=== PATIENT | female | born 1965 | race Caucasian/White ===

== ENCOUNTER 2025-04-20 18:48 | Emergency (ER) | payer MEDICAID ==
[~2025-04-20] VITALS: Ht 162.6 cm; Wt 55.7 kg
[~2025-04-20 18:48] MED LIST: PHEN-786 PO
[2025-04-20 19:05] VITALS: BP 114/70; PULSE 102; RESP 16; O2SAT 98
--- NOTE | 2025-04-20 19:47 | RADIOLOGY REPORT ---
CLINICAL INDICATION: HAND PAIN LEFT TECHNIQUE: 3 radiographic views of the left hand were obtained. Comparison: DI FOOT, COMPLETE (3VW MIN) on DOS: 04/12/25 FINDINGS/IMPRESSION: There is oblique mildly displaced fracture through the base of the 5th digit proximal phalanx with as sociated soft tissue edema. No dislocation. Mild flexion at the proximal interphalangeal joint of the 5th digit.
--- NOTE | 2025-04-20 20:33 | Physician Documentation ---
History of Present Illness ~ Chief Complaint: Mechanical Fall Stated Complaint: FINGER PAIN Time Seen by MD: 19:14 Primary Medical Doctor: None HPI Patient is seen today with complaints of pain of the base of her left small finger. Patient states he tripped and fell two days ago and has had pain in the hand ever since. She has no other concern or complaint at this time. She d enies any head strike or loss of consciousness or headaches pain. She has no other concern or complaint at this time. Tetanus within 5 Years?: Yes Medication Reconciliation Allergies: Coded Allergies: codeine (Unverified Allergy, Unknown, 04/20/25) erythromycin base (Verified Allergy, Unknown, 04/20/25) Scheduled Phenazopyridine Hcl (Pyridium tablet), 1 TAB PO Q8H Past Medical History Past Medical History: UTI, Arthritis Past Surgical History: cholecystectomy Alcohol Use: None Drug Use: none Lives In: Home Review of Systems Constitutional: Denies: chills, fever, weakness Eyes: Denies: pain, blurred vision ENT: Denies: ear pain, nose pain, throat pain, mouth pain Respiratory: Denies: cough, shortness of breath Cardiovascular: Denies: chest pain, palpitations Gastrointestinal: Denies: abdominal pain, nausea, vomiting Genitourinary: Denies: burning, dysuria Female Genitalia: Denies: vaginal discharge, pelvic pain Neurological: Denies: headache, dizziness Musculoskeletal: Denies: pain, swelling Integumentary: Denies: rash, lesions Allergic/Immunologic: Denies: hives, itching Hematologic/Lymphatic: Denies: no symptoms reported Psychiatric: Denies: depression, anxiety Physical Exam Vital Signs: Temperature: 97.1, Source: Temporal, Heart Rate: 102, Respiratory Rate: 16, BP: 114/70, Pulse Oximetry: 98, Weight: 55.700 Oxygen Flow Rate: 0 Physical Exam General: Awake and Alert, no acute distress. HEENT: Patient on exam does have nits in her hair as well as visible lice adult lice on exam. Conjunctiva pink, Sclera clear, Mucus Membranes moist. Neck: Supple without masses and tenderness. Resp: Unlabored. Lungs clear to auscultation bilaterally. Heart: Regular Rate and rhythm, normal S1 and S2 without murmur, rub or gallop. Musculoskeletal: Patient on exam does have bruising and ecchymosis of the left small finger. Patient is neurovascularly intact distally. Motor function is intact. Range of motion is decreased because of pain of the left small finger. Extremities: No cyanosis,clubbing or edema. Skin: Warm and Dry. Progress Results/Orders Results/Orders Orders - KAMALJIT JACK Ortho Orders (04/20/25 20:44) Completed Orders - KAMALJIT JACK Ibuprofen Tablet (Motrin Tablet) (04/20/25 20:43) Medications Received in ER Medications (Trade) Dose Ordered Sig/Luma Route PRN Reason Start Time Stop Time Status Last Admin Dose Admin (Motrin tablet) 800 mg ONCE STAT PO 04/20/25 20:43 04/20/25 21:00 DC 04/20/25 21:08 800 MG Vital Signs 04/20/25 19:05 Temp 97.1 Pulse 102 Resp 16 B/P (MAP) 114/70 Pulse Ox 98 O2 Flow Rate 0 EKG/XRAY/CT/US/VASC/MRI Bone/Soft Tissue X-Ray (Ext.) : Additional Comment X-ray of left hand interpreted by myself today does show mildly displaced oblique fracture of the base of the left 5th proximal phalanx. Bones are otherwise in anatomic alignment. No osteolytic or blastic lesions. DIAGNOSTIC RADIOLOGY Patient: MAYRA NEGRON Medical Record: [id number] [facility] : 1965, Age: 59 Sex: Female Location: ER Patient Status: REG ER Service Date/Time: 04/20/251912 Ordering Physician: ORLANDO SANCHEZ MD Exam: HAND, COMPLETE (3VW MIN) CLINICAL INDICATION: HAND PAIN LEFT TECHNIQUE: 3 radiographic views of the left hand were obtained. Comparison: DI FOOT, COMPLETE (3VW MIN) on DOS: 04/12/25 FINDINGS/IMPRESSION: There is oblique mildly displaced fracture through the base of the 5th digit proximal phalanx with associated soft tissue edema. No dislocation. Mild flexion at the proximal interphalangeal joint of the 5th digit. Electronically Signed by:YARELY HORNE DO Date & Time: 04/20/251943 Dictated by: YARELY HORNE DO Dictation date and time: 04/20/251943 Primary Care Provider: NO PRIMARY CARE PROVIDER cc: ORLANDO SANCHEZ MD ~ Medical Decision Making Findings Patient is seen today with complaints of pain of the base of her left small finger. Patient states he tripped and fell two days ago and has had pain in the hand ever since. She has no other concern or complaint at this time. She denies any head strike or loss of consciousness or headaches pain. She has no other concern or complaint at this time. Patient was placed in a ulnar gutter splint of the left hand and patient will follow up with primary care for referral to Orthopedics with [facility] as soon as possible for further eval and treatment and placement of a cast. Patient voiced understanding. Patient will return to ED with any worsening, concerning or changing symptoms. Prescription of permethrin shampoo was sent to patient pharmacy for treatment of lice infestation. Departure Disposition: HOME / SELF CARE / HOMELESS Impression: Primary Impression: Phalanx, proximal fracture of finger Qualified Codes: S62.617A - Displaced fracture of proximal phalanx of left little finger, initial encounter for closed fracture Condition: Stable Discharge Instructions: Finger Fracture, Adult, [id number] Additional Instructions: Patient was placed in a ulnar gutter splint of the left hand and patient will follow up with primary care for referral to Orthopedics with [facility] as soon as possible for further eval and treatment and placement of a cast. Patient voiced understanding. Patient will return to ED with any worsening, concerning or changing symptoms. Prescription of Ovide shampoo was sent to patient pharmacy for treatment of lice infestation. Referrals: NO PRIMARY CARE PROVIDER (PCP) Prescriptions Malathion (Ovide) 0.5 % Lotion 1 APPLIC TOP UD for 1 Day, #59 ML 0 Refills apply to dry hair and rub gently until the scalp is thoroughly moistened and let dry naturally; shampoo after 8-12 hours Prov: KAMALJIT JACK 04/20/25 Signature Scribe Signature: No scribe Attestation: No scribe KAMALJIT JACK PAC Apr 20, 2025 20:33
[2025-04-20] MEDS: ibuprofen tablet 400 MG TABLET PO STA (21:08)
[2025-04-20] MEDS ORDERED: MALA59LO4 TOP (21:57)
[2025-04-20 22:13] VITALS: TEMP 97.1
--- NOTE | 2025-04-21 08:06 | ELECTROCARDIOGRAPH REPORT ---
[facility] Test Date: 2025-04-20 Test Time: 19:15:24 Pat Name: MAYRA NEGRON Department: EMERGENCY ROOM Room: Gender: F [employer] Tender: : 1965 Requested By: ORLANDO SANCHEZ Order Number: [id number] Reading MD: Dr. Orlando Sanchez Measurements Intervals [place] Rate: 96 P: 85 ID: [id number] QRS: 111 QRSD: 90 T: -27 QT: 328 QTc: 415 Interpretive Statements Sinus rhythm Right atrial enlargement Right axis deviation Borderline repolarization abnormality Electronically Signed On 04-21-2025 18:19:[address] Orlando Sanchez Please click the below link to view image of tracing.
== END 2025-04-20 22:13 | disposition home or self-care (01) ==
LOC: ER 18:49
DX: S62.617A Displaced fracture of proximal phalanx of left little finger, initial encounter for closed fracture (principal); M19.90 Unspecified osteoarthritis, unspecified site; Z90.49 Acquired absence of other specified parts of digestive tract; Z88.5 Allergy status to narcotic agent; Z88.1 Allergy status to other antibiotic agents; Z79.899 Other long term (current) drug therapy; W01.0XXA Fall on same level from slipping, tripping and stumbling without subsequent striking against object, initial encounter; Y93.89 Activity, other specified; Y92.89 Other specified places as the place of occurrence of the external cause; Y99.8 Other external cause status
CPT/HCPCS: 29125; 73130; 93005; 99283; A6449

== ENCOUNTER 2025-05-03 07:34 | Emergency (ER) | payer MEDICAID ==
[~2025-05-03] VITALS: Ht 162.6 cm; Wt 55.2 kg
[~2025-05-03 07:34] MED LIST changes: +MALA59LO4 TOP
[2025-05-03 07:37] VITALS: BP 99/76; PULSE 80; RESP 18; O2SAT 99
--- NOTE | 2025-05-03 08:12 | RADIOLOGY REPORT ---
CLINICAL INDICATION: HAND PAIN TECHNIQUE: 3 radiographic views of the left hand were obtained. Comparison: DI HAND, COMPLETE (3VW MIN) on DOS: 04/20/25 FINDINGS/IMPRESSION: Fracture again visualized 5th proximal phalanx with flexion deformity.
--- NOTE | 2025-05-03 10:35 | Physician Documentation ---
History of Present Illness ~ Chief Complaint: Finger pain Stated Complaint: FINGER PAIN Time Seen by MD: 09:59 Primary Medical Doctor: None HPI Patient is a 59-year-old female that presents to the emergency department for re-evaluation of a fractured 5th digit to her left hand that was sustained a couple of weeks ago. Patient's finger was realigned and casted here the original time of injury. Was referred to Orthopedic Clinic she has not followed up yet. She states that she needs directions and the phone number. No additional injury at this time. Tetanus within 5 years: Yes Medication Reconciliation Allergies: Coded Allergies: codeine (Unverified Allergy, Unknown, 05/03/25) erythromycin base (Verified Allergy, Unknown, 05/03/25) Scheduled Malathion (Ovide), 1 APPLIC TOP UD Phenazopyridine Hcl (Pyridium tablet), 1 TAB PO Q8H Past Medical History Past Medical History: UTI, Arthritis Past Surgical History: cholecystectomy Alcohol Use: None Drug Use: none Lives In: Home Review of Systems ROS As stated above in the HPI, otherwise all systems are reviewed and negative. Physical Exam Vital Signs: Temperature: 98.7, Source: Oral, Heart Rate: 80, Respiratory Rate: 18, BP: 99/76, Pulse Oximetry: 99, Weight: 55.250 Oxygen Flow Rate: 0 Physical Exam VITALS: Reviewed and as above. GENERAL: Alert, no apparent distress. MUSCULOSKELETAL Casted right fifth digit, good pulses SKIN: Warm and dry, no rash NEURO: Oriented x4, No motor or sensory deficit PSYCH: Normal mood and affect, no agitation Progress Results/Orders Results/Orders Vital Signs 05/03/25 07:37 Temp 98.7 Pulse 80 Resp 18 B/P (MAP) 99/76 Pulse Ox 99 O2 Flow Rate 0 Medical Decision Making Findings The Pt was found to have a closed left digit fracture on XR. The Pt is otherwise well appearing, hemodynamically stable, and shows no evidence of neurovascular injury or compartment syndrome. follow up with ortho_ PMD for ortho referal_. Here for re-evaluation and information for an Orthopedic referral. Departure Disposition: HOME / SELF CARE / HOMELESS Impression: Primary Impression: Fracture of metacarpal bone Additional Impression: Finger pain Additional Impression Text Previous fracture sustained go weeks ago already casted here for orthopedic clinic information. Additional Instructions: Nursing for re-evaluation of a right-sided 5th digit fracture sustained and previous to today's visit. Already have a cast in place and were provided with an orthopedic referral. We will provide you with the office number and the directions to the orthopedic office today please follow up with him and follow up with her primary care provider. Return to the emergency department if you have any worsening of your current symptoms or any additional concerning symptoms that we discussed here today. Please follow-up with the orthopedic clinic. Phone number [phone]. Referrals: NO PRIMARY CARE PROVIDER (PCP) Education Educated: Patient Educated regarding: treatment, need for follow up VLADIMIR SO GOLF CADDIE May 03, 2025 10:35
[2025-05-03 10:44] VITALS: TEMP 98.7
== END 2025-05-03 10:46 | disposition home or self-care (01) ==
LOC: ER 07:34
DX: S62.611A Displaced fracture of proximal phalanx of left index finger, initial encounter for closed fracture (principal); M19.90 Unspecified osteoarthritis, unspecified site; Z88.1 Allergy status to other antibiotic agents; Z88.5 Allergy status to narcotic agent; Z90.49 Acquired absence of other specified parts of digestive tract; X58.XXXA Exposure to other specified factors, initial encounter; Y93.89 Activity, other specified; Y92.89 Other specified places as the place of occurrence of the external cause; Y99.8 Other external cause status
CPT/HCPCS: 73130; 99283

== ENCOUNTER 2025-05-31 08:49 | Inpatient (IN) | payer MEDICAID ==
[~2025-05-31] VITALS: Ht 160 cm; Wt 61.7 kg
[2025-05-31 09:07] LABS: MEAN PLATELET VOLUME 7.9 FL (7.4-10.4); RED CELL DISTRIBUTION WIDTH 14.2 % (11.5-14.5)
[2025-05-31 09:17] LABS: TOTAL CARBON DIOXIDE 28.8 MMOL/L (24-32)
--- NOTE | 2025-05-31 09:17 | Physician Documentation ---
History of Present Illness General Chief Complaint: Abdominal Pain Stated Complaint: ABD PAIN Time Seen by MD: 09:13 OK to notify your PCP?: No Primary Medical Doctor: None Source: patient, RN notes reviewed Mode of Arrival: EMS Exam Limitations: no limitations History of Present Illness Initial Comments 60 year old female, with a history of hypothyroidism, brought to the ED via EMS with complaints of diffuse lower abdominal pain, worse on the right, beginning this morning after eating cereal. Pain is rated 8/10 at this time in his constant. She also reports some vomiting yesterday, diarrhea for the last three days, but constipation today. She denies any fever. She denies history of abdominal surgeries. Medication Reconciliation Allergies: Coded Allergies: codeine (Unverified Allergy, Unknown, 05/03/25) erythromycin base (Verified Allergy, Unknown, 05/03/25) Scheduled Aripiprazole (Aripiprazole), 1 TAB PO QAM, (Reported) Divalproex Sodium (Divalproex Sodium), 1 TAB PO HS, (Reported) Levothyroxine Sodium (Levothyroxine Sodium), 1 TAB PO DAILY, (Reported) Pantoprazole Sodium (Pantoprazole Sodium), 1 TAB PO BID, (Reported) Prazosin Hcl (Prazosin Hcl), 2 CAP PO HS, (Reported) Trazodone HCl (Trazodone HCl), 1 TAB PO HS, (Reported) Discontinued Medications Aripiprazole (Abilify), 1 TAB PO DAILY, (Reported) Discontinued Reason: Other Divalproex Sodium (Depakote), 1 TAB PO HS, (Reported) Discontinued Reason: Other Levothyroxine Sodium (Levothyroxine), 1 CAP PO DAILY, (Reported) Discontinued Reason: Other Malathion (Ovide), 1 APPLIC TOP UD Discontinued Reason: patient no longer taking Phenazopyridine Hcl (Pyridium tablet), 1 TAB PO Q8H Discontinued Reason: patient no longer taking Past Medical History Past Medical History: UTI, Arthritis Past Surgical History: cholecystectomy Alcohol Use: None Drug Use: none Lives In: Home Review of Systems All Other Systems at this time: Reviewed and Negative ROS Lower abdominal pain as well as other positive symptoms noted in the HPI. Otherwise all other systems are reviewed and negative. Physical Exam Physical Exam Vital Signs: RN Vital Signs have been reviewed: Yes, Temperature: 97.9, Source: Oral, Heart Rate: 82, Respiratory Rate: 16, BP: 103/64, Pulse Oximetry: 99, Weight: 73.000 Pulse Oximetry Reflects: adequate oxygenation Physical Exam VITALS: Reviewed and as above. GENERAL: Alert, mild distress. HEENT: Normocephalic, atraumatic, PERRL, EOMI, dry mucosa RESPIRATORY: Lungs clear, normal breath sounds, no respiratory distress. CHEST: No accessory muscle use, no retractions CV: Regular rate, rhythm, no edema, no murmur, No: JVD GI: Diffuse lower abdominal tenderness, no peritoneal signs. Soft, bowels sounds present, no rebound, guarding, or rigidity MUSCULOSKELETAL No deformities, no edema SKIN: Warm and dry, no rash NEURO: Oriented x4, No motor or sensory deficit PSYCH: Normal mood and affect, no agitation Progress Progress Note 1145: Reevaluation: Patient continues to complain of right lower abdominal pain despite treatment. 1149: Hospitalist paged. 1215: Case discussed with Dr. Aggarwal, hospitalist, who agrees to evaluate the patient for admission. Results/Orders Reviewed/noted all lab results: Yes Results/Orders Orders - OHLLIV SMITH MD Ct Abdomen Pelvis (05/31/25 10:00) Page Hospitalist (05/31/25 11:52) Fill Out Med Reconciliation (05/31/25 11:52) Completed Orders - LIV MUÑOZ MD Hcg, Ur Ql (05/31/25 08:56) Cbc/Diff (05/31/25 08:56) BMP (05/31/25 08:56) Lipase (05/31/25 08:56) CMP (05/31/25 08:56) Procalcitonin (05/31/25 09:15) Acetaminophen 1,000mg/100ml Iv (Ofirmev (05/31/25 09:35) Normal Saline 1000ml (0.9% Sodium Chlori (05/31/25 09:35) Glycopyrrolate Inj (Robinul Inj) (05/31/25 09:35) Ct Abdomen Pelvis (05/31/25 10:00) Iohexol 300mg/Ml 100ml Inj. (Omnipaque-3 (05/31/25 10:04) Ketorolac Trometh 15mg/Ml Vial (Toradol (05/31/25 11:50) Ondansetron Inj. (Zofran 4mg/2ml Vial) (05/31/25 11:50) Piperacillin/Tazo 3.375gm/50ml (Zosyn 3. (05/31/25 11:50) Morphine 4mg/Ml Inj. (Morphine Inj.) (05/31/25 11:50) Ua W/Microscopic, Cult If Ind (06/01/25 02:30) Laboratory Tests Test 05/31/25 09:00 05/31/25 09:24 White Blood Count 4.1 L Red Blood Count 4.13 L Hemoglobin 13.0 Hematocrit 38.8 Mean Corpuscular Volume 93.9 Mean Corpuscular Hemoglobin 31.5 H Mean Corpuscular Hemoglobin Concent 33.6 Red Cell Distribution Width 14.2 Platelet Count 209 Mean Platelet Volume 7.9 Neutrophils (%) (Auto) 81.9 H Lymphocytes (%) (Auto) 14.8 L Monocytes (%) (Auto) 2.2 Eosinophils (%) (Auto) 0.8 Basophils (%) (Auto) 0.3 Neutrophils # (Auto) 3.4 Lymphocytes # (Auto) 0.6 L Monocytes # (Auto) 0.1 Eosinophils # (Auto) 0.0 Basophils # (Auto) 0.0 CBC Comment Sodium Level 141 Potassium Level 3.4 L Chloride Level 106 Carbon Dioxide Level 28.8 Anion Gap 6 L Blood Urea Nitrogen 2 L Creatinine 0.70 Estimated GFR/1.73 m2 86 BUN/Creatinine Ratio 2.9 L Glucose Level 141 H Calcium Level 8.8 Total Bilirubin 0.3 Aspartate Amino Transf (AST/SGOT) 15 Alanine Aminotransferase (ALT/SGPT) 17 Alkaline Phosphatase 87 Total Protein 6.7 Albumin 3.5 Globulin 3.2 Albumin/Globulin Ratio 1.1 Lipase 14 L Chemistry Comments Procalcitonin < 0.05 EKG/XRAY/CT/US/VASC/MRI CT : Interpreted By: radiologist CT: abdomen/pelvis With Contrast?: Yes Impression EXAM: CT CT ABDOMEN PELVIS W/ IV CONTRAST HISTORY: 60-year-old female with diffuse abdominal pain, greater on the right, beginning after eating cereal, vomiting, constipation and diarrhea. COMPARISON: None TECHNIQUE: Helical CT images of the abdomen and pelvis were performed with 100 mL omnipaque 300 IV contrast. Sagittal and coronal reformatted images were obtained. This CT exam was performed using 1 or more of the following dose reduction techniques: Automated exposure control, adjustment of the mA and/or kv according to patient size, or the use of iterative reconstruction techniques. Radiation Dose Information: CT Dose: CTDI volume is 9.9 mGy. Dose-length product is 453.96 mGy*cm FINDINGS: CT abdomen: There is a 2.5 mm left lower lobe noncalcified pulmonary nodule (image 11, series 2). The heart is not enlarged. There is a small area of focal fatty density in the left lobe of the liver adjacent to the falciform ligament. Gallbladder is surgically absent. There is prominence of the intra and extrahepatic biliary ducts. The spleen, pancreas, kidneys, and adrenal glands are unremarkable. No abdominal aortic aneurysm or dissection. There is wall thickening of the gastric antrum, with question of an ulceration of the anterior wall of the gastric antrum (image 46, series 2).. There is a small sliding hiatal hernia. CT pelvis: No abnormal small bowel dilatation or free air. There is low to moderate volume free fluid in the pelvis. There is fecal retention in the colon. There is wall thickening of the ascending colon with adjacent fat stranding (images 48-61, series 2), with adjacent fat stranding. The appendix is not dilated. There are small fatty bilateral inguinal hernias, slightly larger on the right. The urinary bladder wall is diffusely mildly thickened, although the urinary bladder is not fully distended. There is chronic appearing mild superior endplate compression fracture of T12. There is moderate lower lumbar degenerative disc disease and facet arthropathy. IMPRESSION: 1. Gastric antrum wall thickening suggestive of gastritis. Additionally, there may be a gastric antral ulceration. Recommend gastroenterology consultation for possible upper endoscopy or other appropriate management. 2. Wall thickening of the ascending colon with adjacent fat stranding suggestive of colitis. 3. Postoperative changes of cholecystectomy. 4. Fecal retention in the colon suggestive of constipation. 5. Urinary bladder wall thickening may be due to cystitis versus artifactual appearance due to incomplete luminal distention. 6. Low to moderate volume free fluid in the pelvis may be physiologic and/or pathologic. 7. Chronic appearing mild superior endplate compression fracture of T12. 8. No evidence of bowel obstruction, acute appendicitis, or other acute process in the abdomen or pelvis. Reviewed by myself. Medical Decision Making Additional info obtained from: old records (last seen in april for metacarpal fracture) Findings The patient presents with lower abdominal pain. Patient has some tenderness in the lower abdomen there was no peritoneal signs the patient is hemodynamically stable. CT imaging of the abdomen was reviewed by myself I have reviewed the radiologist's interpretation demonstrates some ascending colitis in the right lower quadrant. The patient was given an old pain medication fluids and antiemetics in the emergency department with some improvement. She does continued to have pain, she is requesting admission at this time. The case has been discussed with the hospitalist. The patient will be admitted to the hospitalist. Prior hospitalizations have been reviewed. Pulse oximetry was interpreted as normal and adequate. Departure Time of Disposition: 11:49 Disposition: ADMITTED INPATIENT Admitted to Inpatient Unit: yes, to hospitalist Impression: Primary Impression: Colitis Additional Impression: Abdominal pain Qualified Codes: R10.9 - Unspecified abdominal pain Condition: Fair Referrals: NO PRIMARY CARE PROVIDER (PCP) Signature Scribe Signature: Scribed for Liv Muñoz MD by Jono Olmos . 05/31/25 09:45 Attestation: The note accurately reflects work and decisions made by me.Liv Muñoz MD 06/06 12:25 LIV MUÑOZ MD May 31, 2025 09:17 JONO CARNEY May 31, 2025 09:33
[2025-05-31 09:35] LABS: CREATININE 0.70 MG/DL (0.40-0.90); eCRCL 75 ML/MIN; eGFR 86 ML/MIN
[2025-05-31] MEDS: glycopyrrolate 0.2mg/ml inj IV ONE (09:48)
[2025-05-31] MEDS: normal saline 1000ML IV soln IVB ONE (09:49)
[2025-05-31] MEDS: acetaminophen 1,000mg/100ml IV 100 ML IV ONE (09:49)
[2025-05-31] MEDS ORDERED: iohexol 300mg/ml 100ml inj. ONE (10:04)
--- NOTE | 2025-05-31 10:51 | RADIOLOGY REPORT ---
EXAM: CT CT ABDOMEN PELVIS W/ IV CONTRAST HISTORY: 60-year-old female with diffuse abdominal pain, greater on the right, beginning after eating cereal, vomiting, constipation and diarrhea. COMPARISON: None TECHNIQUE: Helical CT images of the abdomen and pelvis were performed with 100 mL omnipaque 300 IV c ontrast. Sagittal and coronal reformatted images were obtained. This CT exam was performed using 1 or more of the following dose reduction techniques: Automated exposure control, adjustment of the mA an d/or kv according to patient size, or the use of iterative reconstruction techniques. Radiation Dose Information: CT Dose: CTDI volume is 9.9 mGy. Dose-length product is 453.96 mGy*cm FINDINGS: CT abdomen: There is a 2.5 mm left lower lobe noncalcified pulmonary nodule (image 11, series 2). The heart is not enlarged. There is a small area of focal fatty density in the left lobe of the liver ad jacent to the falciform ligament. Gallbladder is surgically absent. There is prominence of the intra and extrahepatic biliary ducts. The spleen, pancreas, kidneys, and adrenal glands are unremarkable. N o abdominal aortic aneurysm or dissection. There is wall thickening of the gastric antrum, with quest ion of an ulceration of the anterior wall of the gastric antrum (image 46, series 2).. There is a sma ll sliding hiatal hernia. CT pelvis: No abnormal small bowel dilatation or free air. There is low to moderate volume free fluid in the pelvis. There is fecal retention in the colon. There is wall thickening of the ascending colo n with adjacent fat stranding (images 48-61, series 2), with adjacent fat stranding. The appendix is not dilated. There are small fatty bilateral inguinal hernias, slightly larger on the right. The ur inary bladder wall is diffusely mildly thickened, although the urinary bladder is not fully distended . There is chronic appearing mild superior endplate compression fracture of T12. There is moderate lo wer lumbar degenerative disc disease and facet arthropathy. IMPRESSION: 1. Gastric antrum wall thickening suggestive of gastritis. Additionally, there may be a gastric antr al ulceration. Recommend gastroenterology consultation for possible upper endoscopy or other appropr iate management. 2. Wall thickening of the ascending colon with adjacent fat stranding suggestive of colitis. 3. Postoperative changes of cholecystectomy. 4. Fecal retention in the colon suggestive of constipation. 5. Urinary bladder wall thickening may be due to cystitis versus artifactual appearance due to incomp lete luminal distention. 6. Low to moderate volume free fluid in the pelvis may be physiologic and/or pathologic. 7. Chronic appearing mild superior endplate compression fracture of T12. 8. No evidence of bowel obstruction, acute appendicitis, or other acute process in the abdomen or pel vis.
[2025-05-31] MEDS: ondansetron/PF 4mg/2ml inj IV ONE (12:13)
[2025-05-31] MEDS: ketorolac trometh 15mg/ml vial 15 MG/ML ML IV ONE (12:13)
[2025-05-31] MEDS: piperacillin/tazo 3.375gm/50ml 50 ML IV ONE (12:14)
[2025-05-31] MEDS: morphine 4 MG/ML inj SYRINge IV ONE (12:14)
[2025-05-31] MEDS ORDERED: potassium Cl 40MEQ/1/2NS 520ml 520 ML IV PRN (12:30)
[2025-05-31] MEDS ORDERED: magnesium sulf-water 2g/50mL 50 ML IV PRN (12:30)
[2025-05-31] MEDS ORDERED: magnesium sulf-water 4G/100mL 100 ML IV PRN (12:30)
[2025-05-31] MEDS ORDERED: potassium Cl 20 mEq SR tablet PO PRN (12:30)
[2025-05-31] MEDS ORDERED: magnesium Cl slow-release 64mg tablet PO PRN (12:30)
--- NOTE | 2025-05-31 12:57 | HISTORY AND PHYSICAL ---
History & Physical Providers to CC ~ History of Present Illness Reason for Admit\Complaint: Abdominal pain History of Present Illness 60 years old female presented to the ER from the [place] for evaluation of abdominal pain that started this morning . Describes pain as constant , stabbing in nature , mostly in the lower abdomen. Patient states she had vomited yesterday. Denies having any hematemesis melena or bright red blood per rectum. Denies having any fever. States she had diarrhea for about three days but after that she has had no BM for last two days. Patient evaluated with a CT scan of the abdomen which showed gastric antrum wall thickening suggestive of gastritis a gastric antral ulceration and wall thickening of the ascending colon with adjacent fat stranding suggestive of colitis. Patient has been admitted for further treatment She denies having any chest pain palpitations orthopnea PND or ankle edema. Patient denies having any focal neurological symptoms. Denies having any urinary symptoms as well. Allergies: Coded Allergies: codeine (Unverified Allergy, Unknown, 05/03/25) erythromycin base (Verified Allergy, Unknown, 05/03/25) Home Medications Home Medications Active Ovide (Malathion) 0.5 % Lotion 1 Applic TOP UD 1 Days apply to dry hair and rub gently until the scalp is thoroughly moistened and let dry naturally; shampoo after 8-12 hours Pyridium tablet (Phenazopyridine HCl) 100 Mg Tablet 1 Tab PO Q8H Past Medical History Past Medical History Hypothyroidism, insomnia,Bipolar disorder Past Surgical History Surgical History Comment Cholecystectomy Family History Family History: Family history was reviewed; no changes noted. Past Social History [facility] , Smokes 3-4 cigarettes per day , does not drink or do any drugs Health Maintenance Health Maintenance She is current on her immunizations. ROS ROS All other systems are reviewed and are negative except as mentioned in HPI Exam Vitals: Vital Signs Date Time Temp Pulse Resp B/P (MAP) Pulse Ox O2 Delivery O2 Flow Rate FiO2 05/31/25 12:14 16 05/31/25 12:11 97.9 99 139/80 (99) 98 0 General: Awake alert cooperative in no acute distress. HEENT: Normocephalic, atraumatic, extraocular movements are intact, sclerae anicteric, conjunctiva pink, moist oral mucosa. Neck: Supple, no JVD, trachea midline, no lymphadenopathy. Chest: Clear to auscultation, no wheezes crackles or rhonchi. Cardiovascular: Regular rate rhythm, no murmur gallop or rub. Abdomen: Soft, tender on palpation, no organomegaly Extremities: No cyanosis clubbing or edema. Central Nervous System: Nonfocal. Moves all four extremities Musculoskeletal: No joint swelling or deformities Skin: No rash or ulcers Diagnostic Data Last Recorded Lab Results: 05/31/25 0905/31/25 09 Additional Plan 60 years old female presented to the ER for evaluation of abdominal pain. 1. Abdominal pain: CT scan findings noted for gastritis, antral ulcer, colitis. We will start her on IV Protonix, IV antibiotics. Consulted GI. We will keep patient NPO and start on IV fluids. 2. Probable bacterial colitis: We will treat her with empiric antibiotics. 3. Fecal impaction: Bowel care. 4. Hypothyroidism: Continue levothyroxine 5. Depression/bipolar disorder: Continue trazodone , Abilify and Depakote. 6. Hypokalemia Will replace per protocol 7. GI prophylaxis Protonix 8. DVT Prophylaxis: SCD 's and early ambulation. 9.Code status: Patient wishes to be a full code Date of Service: May 31, 2025 Billing Provider: KIMANI DONAHUE MD Common Visit Codes: [id number] INP/OBS CARE (HIGH) KIMANI DONAHUE MD May 31, 2025 12:57
[2025-05-31] MEDS ORDERED: LEVO25CA5 PO (13:00)
[2025-05-31] MEDS ORDERED: ARIP10TA9 PO (13:00)
[2025-05-31] MEDS ORDERED: TRAZ-251 PO (13:00)
[2025-05-31] MEDS ORDERED: DIVA500T2 PO (13:00)
[2025-05-31] MEDS: normal saline 1000ml 1,000 ML IV SCH (13:02)
[2025-05-31] MEDS: HYDROcodone/acetaminophen 10/325mg tab PO ONE (13:26)
[2025-05-31 14:00] VITALS: BP 137/74; PULSE 90; RESP 17; TEMP 98.1; O2SAT 98
[2025-05-31 14:08] VITALS: RESP 16; O2SAT 98
--- NOTE | 2025-05-31 14:57 | CONSULTATION REPORT - RESIDENT ---
Consult Providers to CC Resident Creating Document: JAYY BONDS RES History of Present Illness Reason for Admit\Complaint: possible gastric ulcer and colitis History of Present Illness A 60 years old female patient with PMH of hypothyroidism, UTI, arthritis, cholecystectomy presented to the ER with chief complaints of abdominal pain since 5 days. She endorses that she has continuous, stabbing type of pain, 8/10 severity in the lower abdomen aggravated with lying on the sides associated with nausea, 2 episodes of yellow-green vomiting. She stated that she had 3-4 bowel movements per day for 3 days and then she has no bowel movements since 2 days. She states that she did not pass gas or bowel movement since today morning. She denies any recent food intake outside or any sick contact. She denies abdominal distention, blood in vomiting or stool, shortness for breath, dizziness, syncope, chest pain, heartburn, dyspepsia, fevers. Allergies: Coded Allergies: codeine (Unverified Allergy, Unknown, 05/03/25) erythromycin base (Verified Allergy, Unknown, 05/03/25) Home Medications Home Medications Active Reported Levothyroxine (Levothyroxine Sodium) 25 Mcg Capsule 1 Cap PO DAILY 30 Days Abilify (Aripiprazole) 10 Mg Tablet 1 Tab PO DAILY 30 Days Trazodone HCl 50 Mg Tablet 1 Tab PO HS 30 Days Depakote (Divalproex Sodium) 500 Mg Tablet.dr 1 Tab PO HS 30 Days Past Medical History Past Medical History hypothyroidism UTI arthritis Past Surgical History Surgical History Comment cholecystectomy Past Social History Social History Comment Active smoker, smokes 3-4 cigarettes per day since 2 years She denies drinking alcohol Denies any recreational drug use Retired, she lives at [facility] Constitutional: No fever, chills, dizziness, weight gain or loss Eyes: No pain, erythema, discharge, blurring of vision ENT: No sore throat, epistaxis, tinnitus Cardiovascular:No chest pain, palpitations, syncope, lower extremity edema, paroxysmal nocturnal dyspnea Respiratory: No Shortness of breath and cough, No hemoptysis. Gastrointestinal:Reports Abdominal pain, vomiting,nausea,constipation,diarrhea. Normal appetite. No hematemesis or melena. Musculoskeletal: No swelling or edema of extremities. Integumentary: No change in skin, hair, nails. No swelling, bruising, abrasions Neurologic: No weakness,No headache, neck pain, numbness or tingling of the extremities, Psychiatric: No delusions, depression, loss of interest in normal activity or change in sleep pattern, hallucinations, suicidal ideations Endocrine: No fatigue, no weakness. polydipsia, polyuria, change in appetite, heat or cold intolerance, sweating, dry skin Hematological: No bleeding, petechiae, bruising Allergies: No asthma or urticaria Exam Vitals: Vital Signs Date Time Temp Pulse Resp B/P (MAP) Pulse Ox O2 Delivery O2 Flow Rate FiO2 05/31/25 14:08 16 98 Room Air 05/31/25 12:11 97.9 99 139/80 (99) 0 General: Awake , alert and oriented to time,place, person, in mild distress HEENT: Atraumatic, normocephalic, PEERLA, anicteric sclera ; pink conjunctiva, dry mucosal membranes Neck: Trachea midline. Supple, normal range of motion, no JVD Cardiac: S1, S2 heard,Regular rate and rhythm, no murmurs heard. Chest and Respiratory: Equal breath sounds bilaterally, no tachypnea, wheezing and ronchi .Chest wall is symmetric and without deformity. Abdomen: Soft, diffuse lower abdominal tenderness, No guarding or rigidity, Little's sign negative. Hypoactive bowel sounds, no hepatosplenomegaly MSK: Range of motion of all extremities are normal. There is no joint pain or joint swelling or joint erythema. There is no muscle pain or tenderness or swelling. Extremities: warm, well-perfused, No cyanosis, clubbing, 2+ pulses felt Neurological: Speech is clear, alert, and oriented x 4. No sensory or motor deficits. Cranial nerves II-XII intact. Skin: Warm and dry Psychiatry: Affect and mood are normal Diagnostic Data Last Recorded Lab Results: 05/31/25 0900 05/31/25 0900 Additional Plan Abdominal pain Possible 2/2 gastritis versus gastric ulcer Possible colitis Fecal impaction CT showed : -Gastric antrum wall thickening suggestive of gastritis. PUD is a possibility -Wall thickening of the ascending colon with adjacent fat stranding suggestive of colitis. -Fecal retention in the colon suggestive of constipation. H&H are stable Initial CBC, procalcitonin, lipase are normal Started on MiraLax 17 gms p.o. daily Started on IV protonix 40 mg b.i.d. daily IV Zofran 4 mg p.r.n. Pain management with morphine as needed Started on clear liquid diet, NPO after midnight Planned for EGD tomorrow, risks versus benefits are explained to the patient and patient agreed for the procedure Planned for colonoscopy on 06/02/2025 - continue management as per the primary hospitalist DVT prophylaxis: SCDs GI prophylaxis: IV Protonix 40 mg Diet: Clear liquid diet, NPO after midnight Disposition: Patient was admitted for evaluation of abdominal pain. Patient planned for EGD tomorrow. Melvina Bonds MD Internal Medicine Resident, PGY 1 Date of Service: May 31, 2025 Billing Provider: SHEA BUSTILLO MD, SUNIL KUMAR, RES May 31, 2025 14:57 SHEA BUSTILLO MD Jun 03, 2025 14:47
[2025-05-31] MEDS: metroNIDAZOLE-Flagyl 500mg/NS 100 ML IV SCH (15:42)
[2025-05-31] MEDS: potassium Cl 20 mEq SR tablet PO PRN (15:42)
[2025-05-31 18:00] VITALS: BP 139/113; PULSE 106; RESP 18; TEMP 98; O2SAT 95
[2025-05-31] MEDS: nicotine 7mg patch - 24hr TD SCH (18:25)
[2025-05-31 20:00] VITALS: RESP 16; O2SAT 93
[2025-05-31] MEDS: K and/or MAG REPLACEMENT MC SCH (20:00)
[2025-05-31] MEDS: divalproex sodium 500mg tablet.DR PO SCH (21:22)
[2025-05-31 22:00] VITALS: BP 96/50; PULSE 94; RESP 14; TEMP 97.8; O2SAT 96
[2025-06-01] VITALS (14 sets, daily range): BP systolic 89–123; BP diastolic 60–78; PULSE 74–124; RESP 13–28; TEMP 97.6–98.5; O2SAT 95–99
[2025-06-01 03:08] LABS: LEUKOCYTE ESTERASE ,URINE NEGATIVE (Neg); NITRITES, URINE NEGATIVE (Neg); OCCULT BLOOD,URINE NEGATIVE (Neg)
[2025-06-01 03:10] LABS: URINE HCG NEGATIVE (NEG)
[2025-06-01 03:13] LABS: UA COLLECTION TYPE CLN CATCH MIDSTREAM
[2025-06-01 03:14] LABS: HYALINE CASTS 0-3 /LPF (NEGATIVE); MUCUS STRANDS MODERATE /LPF (Neg); SQUAMOUS EPITHELIAL CELL,UR MANY /LPF (FEW)
[2025-06-01 04:32] LABS: MEAN PLATELET VOLUME 8.1 FL (7.4-10.4); RED CELL DISTRIBUTION WIDTH 14.2 % (11.5-14.5)
[2025-06-01 05:05] LABS: BANDS% (MANUAL) 32 % (0-10); CREATININE 0.68 MG/DL (0.40-0.90); NEUTROPHILS % (MANUAL) 46 % (42-75); TOTAL CARBON DIOXIDE 23.6 MMOL/L (24-32); eCRCL 77 ML/MIN; eGFR 89 ML/MIN
[2025-06-01 05:06] LABS: LYMPHOCYTES % (MANUAL) 14 % (21-51); METAMYLEOCYTES% (MANUAL) 4 % (0-0); MONOCYTES % (MANUAL) 4 % (2-12); PLATELET ESTIMATE NORMAL
[2025-06-01] MEDS: polyethylene glycol 3350 17gm powd pack PO SCH (08:00)
[2025-06-01] MEDS: levoTHYROXINE 25mcg tablet PO SCH (08:17)
[2025-06-01] MEDS: CefTRIAXone/D5W-Rocephin 1gm 50 ML IV SCH (08:20)
[2025-06-01] MEDS ORDERED: simethicone 40mg/0.6ml oral drops 15ml ONE (09:15)
[2025-06-01] MEDS ORDERED: LIDOcaine 2% Viscous 15ml cup ONE (09:15)
[2025-06-01] MEDS ORDERED: ringers solution, lactated 1000ml IV soln IV ONE (09:15)
[2025-06-01] MEDS ORDERED: propofol inj 20 ML IV ONE (09:17)
--- NOTE | 2025-06-01 10:28 | PROGRESS NOTE- Residence ---
Progress Note - Resident Providers to CC Resident Creating Document: JAYY BONDS RES ~ Antibiotic Timeout Antibiotic Ordered?: Yes Subjective patient was seen and examined at bedside. Patient complains of abdominal pain better than yesterday. Patient planned for EGD today. Objective Vital Signs Date Time Temp Pulse Resp B/P (MAP) Pulse Ox O2 Delivery O2 Flow Rate FiO2 06/01/25 10:20 101 13 117/72 (87) 99 Nasal Cannula 2.0 06/01/25 09:30 97.9 Result Diagram: 06/01/258 06/01/25407 Awake , alert and oriented to time,place, person, not in distress HEENT: Atraumatic, normocephalic, PEERLA, anicteric sclera ; pink conjunctiva, moist mucosal membranes Neck: Trachea midline. Supple, normal range of motion, no JVD Cardiac: S1, S2 heard,Regular rate and rhythm, no murmurs heard. Chest and Respiratory: Equal breath sounds bilaterally, no tachypnea, wheezing and ronchi .Chest wall is symmetric and without deformity. Abdomen: Soft, moderate lower abdominal tenderness, No guarding or rigidity, Little's sign negative. Hypoactive bowel sounds, no hepatosplenomegaly MSK: Range of motion of all extremities are normal. There is no joint pain or joint swelling or joint erythema. There is no muscle pain or tenderness or swelling. Extremities: warm, well-perfused, No cyanosis, clubbing, 2+ pulses felt Neurological: Speech is clear, alert, and oriented x 4. No sensory or motor deficits. Cranial nerves II-XII intact. Skin: Warm and dry Psychiatry: Affect and mood are normal Plan Plan Abdominal pain secondary to Reflux esophaigits and Peptic ulcer disease with active bleeding on EGD Fecal impaction CT showed : -Gastric antrum wall thickening suggestive of gastritis. Additionally, there may be a gastric antral ulceration. -Wall thickening of the ascending colon with adjacent fat stranding suggestive of colitis. -Fecal retention in the colon suggestive of constipation. EGD Showed: LA Garde B reflux esophagitis with no bleeding. Ulcer in the stomach with active bleeding. Awaiting for pathology reports. H&H are stable Initial CBC, procalcitonin, lipase are normal Started on MiraLax 17 gms p.o. daily Started on IV protonix 40 mg b.i.d. daily IV Zofran 4 mg p.r.n. Pain management with morphine as needed Started on clear liquid diet, NPO after midnight Planned for colonoscopy tomorrow. Fecal impaction Possible Bacterial colitis - continue management as per the primary hospitalist DVT prophylaxis: SCDs GI prophylaxis: IV Protonix 40 mg Diet: Clear liquid diet, NPO after midnight, colonoscopy tomorrow Disposition: Patient was admitted with possible GI bleed. EGD showed reflux esophagitis and PUD. Planned for colonoscopy tomorrow. Melivna Bonds MD Internal Medicine Resident, PGY 1 Date of Service: Jun 01, 2025 Billing Provider: SHEA BUSTILLO MD, SUNIL KUMAR, RES Jun 01, 2025 10:28
[2025-06-01] MEDS ORDERED: HYDROcodone/acetaminophen 5mg/325mg tablet PO PRN (11:10)
[2025-06-01] MEDS: HYDROcodone/acetaminophen 10/325mg tab PO PRN (12:42)
[2025-06-01] MEDS: PEG 3350/Na sulf,bicarb,Cl/KCl oral sol 4 liter bottle PO ONE (12:44)
--- NOTE | 2025-06-01 16:31 | PROGRESS NOTE ---
Daily Progress Note Providers to CC ~ Antibiotic Timeout Antibiotic Ordered?: Yes Subjective Continues to complain of pain in her abdomen. Objective Vital Signs Date Time Temp Pulse Resp B/P (MAP) Pulse Ox O2 Delivery O2 Flow Rate FiO2 06/01/25 12:42 16 06/01/25 11:20 98.0 88 110/77 (88) 96 Room Air 06/01/25 10:20 2.0 Result Diagram: 06/01/25 0408 06/01/25 0408 Awake alert cooperative in no acute distress. HEENT:Normocephalic, atraumatic, extraocular movements are intact, sclerae anicteric, conjunctiva pink, moist oral mucosa. Neck:Supple, no JVD, trachea midline, no lymphadenopathy. Chest:Clear to auscultation, no wheezes crackles or rhonchi. Cardiovascular:Regular rate rhythm, no murmur gallop or rub. Abdomen:Soft to firm , tender on palpation, no organomegaly Extremities:No cyanosis clubbing or edema. Central Nervous System: Nonfocal. Moves all four extremities Musculoskeletal:No joint swelling or deformities Skin:No rash or ulcers Other Results Medications reviewed Problem\Assessment\Plan 60 years old female presented to the ER for evaluation of abdominal pain. Patient lives admission 1. Gastritis/antral ulcer/colitis: Continue IV antibiotics and IV Protonix. Patient underwent an EGD which showed LA grade B reflux esophagitis with no bleeding and ulcer in the stomach with active bleeding. Patient to have a colonoscopy in a.m.. 2. Probable bacterial colitis: Continue IV antibiotics 3. Fecal impaction: Patient is presently drinking GoLYTELY 4. Hypothyroidism: Continue levothyroxine 5. Depression/bipolar disorder: Continue trazodone , Abilify and Depakote. 6. Code status: Full code Date of Service: Jun 01, 2025 Billing Provider: KIMANI DONAHUE MD Common Visit Codes: [id number] INP/OBS CARE(HIGH) KIMANI DONAHUE MD Jun 01, 2025 16:31
[2025-06-01] MEDS: ondansetron/PF 4mg/2ml inj IV PRN (17:09)
[2025-06-01] MEDS: metoclopramide 5 mg/ml inj IV ONE (20:49)
[2025-06-01] MEDS: bisacodyl 10mg suppository rectal RC STA (22:56)
[2025-06-02] VITALS (9 sets, daily range): BP systolic 127–161; BP diastolic 75–86; PULSE 91–125; RESP 12–24; TEMP 97–97.8; O2SAT 91–100
--- NOTE | 2025-06-02 02:08 | RADIOLOGY REPORT ---
Date: 06/02/2025 01:41 AM Examination: DI ABDOMEN,SINGLE VIEW(KUB) History: increase abdo pain, rule out obstruction Comparison: None TECHNIQUE: Frontal views of the abdomen was obtained. FINDINGS: Scattered gas throughout nondilated small and large bowel. Cholecystectomy clips are seen. Moderate retained stool in the colon. No abnormal calcifications. No radiopaque foreign body. No acute osseous abnormality identified. IMPRESSION: 1. No evidence of bowel obstruction. 2. Moderate retained stool in the large bowel.
[2025-06-02 04:44] LABS: MEAN PLATELET VOLUME 9.2 FL (7.4-10.4); RED CELL DISTRIBUTION WIDTH 14.3 % (11.5-14.5)
[2025-06-02 04:52] LABS: CREATININE 1.64 MG/DL (0.40-0.90); TOTAL CARBON DIOXIDE 17.1 MMOL/L (24-32); eCRCL 31 ML/MIN; eGFR 32 ML/MIN
[2025-06-02] MEDS: PEG 3350/Na sulf,bicarb,Cl/KCl oral sol 4 liter bottle PO ONE (09:15)
[2025-06-02] MEDS: diatr meglu/diatrizoate 30ml oral sol.-(3 dose) bottle PO SCH (11:51)
--- NOTE | 2025-06-02 12:20 | ELECTROCARDIOGRAPH REPORT ---
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 JEFFREY Banks Measurements Intervals [place] Rate: 120 P: 40 ME: 126 QRS: 90 QRSD: 83 T: -67 QT: 265 QTc: 375 Interpretive Statements Sinus tachycardia Borderline right axis deviation Borderline T abnormalities, diffuse leads Electronically Signed On 06-02-2025 17:59:[address] JEFFREY Banks Please click the below link to view image of tracing.
--- NOTE | 2025-06-02 12:26 | PROGRESS NOTE- Residence ---
Progress Note - Resident Providers to CC Resident Creating Document: JAYY BONDS RES ~ Antibiotic Timeout Antibiotic Ordered?: Yes Subjective patient was seen and examined at bedside. Patient complains of severe lower abdominal pain and abdominal distention. She did not pass gas or denies any bowel movement. Patient complaints of nausea and multiple episodes of vomitings. Objective Vital Signs Date Time Temp Pulse Resp B/P (MAP) Pulse Ox O2 Delivery O2 Flow Rate FiO2 06/02/25 08:00 Room Air 06/02/25 06:00 97.8 120 24 135/77 (96) 92 06/01/25 10:20 2.0 Result Diagram: 06/02/2542606/02/25426 Awake , alert and oriented to time,place, person, not in distress HEENT: Atraumatic, normocephalic, PEERLA, anicteric sclera ; pink conjunctiva, moist mucosal membranes Neck: Trachea midline. Supple, normal range of motion, no JVD Cardiac: S1, S2 heard,Regular rate and rhythm, no murmurs heard. Chest and Respiratory: Equal breath sounds bilaterally, no tachypnea, wheezing and ronchi .Chest wall is symmetric and without deformity. Abdomen: Soft, moderate tenderness in the lower abdomen, mildly distended, absent bowel bounds. no guarding or rigidity ,Little's sign negative. MSK: Range of motion of all extremities are normal. There is no joint pain or joint swelling or joint erythema. There is no muscle pain or tenderness or swelling. Extremities: warm, well-perfused, No cyanosis, clubbing, 2+ pulses felt Neurological: Speech is clear, alert, and oriented x 4. No sensory or motor deficits. Cranial nerves II-XII intact. Skin: Warm and dry Psychiatry: Affect and mood are normal Plan Plan Rule out small-bowel obstruction/ileus Abdominal pain secondary to Reflux esophaigits and Peptic ulcer disease with active bleeding on EGD Fecal impaction CT showed : -Gastric antrum wall thickening suggestive of gastritis. Additionally, there may be a gastric antral ulceration. -Wall thickening of the ascending colon with adjacent fat stranding suggestive of colitis. -Fecal retention in the colon suggestive of constipation. EGD Showed: LA Garde B reflux esophagitis with no bleeding. Ulcer in the stomach with active bleeding. Awaiting for pathology reports. H&H are stable Initial CBC, procalcitonin, lipase are normal Started on MiraLax 17 gms p.o. daily Started on IV protonix 40 mg b.i.d. daily IV Zofran 4 mg p.r.n. Pain management with morphine as needed Started on clear liquid diet, NPO after midnight Planned for colonoscopy tomorrow. Plan-06/02/2025: Patient had multiple episodes of vomiting after intake of GoLYTELY yesterday night. Ordered IV Zofran as needed. Patient vomiting not resolved. Stopped GoLYTELY. On examination: Soft, moderate tenderness in the lower abdomen, mildly distended, absent bowel bounds. no guarding or rigidity ,Little's sign negative. KUB showed moderate amount of stool in large bowel. Ordered CT scan to rule out small-bowel obstruction/ ileus. Held colonoscopy. Ordered NPO Fecal impaction Possible Bacterial colitis - continue management as per the primary hospitalist DVT prophylaxis: SCDs GI prophylaxis: IV Protonix 40 mg Diet: NPO Disposition: Held colonoscopy. Ordered CT scan to rule out small-bowel obstruction/ ileus. Melvina Bonds MD Internal Medicine Resident, PGY 1 Date of Service: Jun 02, 2025 Billing Provider: SHEA BUSTILLO MD, SUNIL KUMAR, RES Jun 02, 2025 12:26
--- NOTE | 2025-06-02 16:57 | PROGRESS NOTE ---
Daily Progress Note Providers to CC ~ Antibiotic Timeout Antibiotic Ordered?: Yes Subjective Patient reports she vomited all night .RN confirmed the same Objective Vital Signs Date Time Temp Pulse Resp B/P (MAP) Pulse Ox O2 Delivery O2 Flow Rate FiO2 06/02/25 10:00 97.0 125 18 127/75 (92) 100 Room Air 06/01/25 10:20 2.0 Result Diagram: 06/02/2542606/02/25426 Awake alert cooperative in no acute distress. HEENT:Normocephalic, atraumatic, extraocular movements are intact, sclerae anicteric, conjunctiva pink, moist oral mucosa. Neck:Supple, no JVD, trachea midline, no lymphadenopathy. Chest:Clear to auscultation, no wheezes crackles or rhonchi. Cardiovascular:Regular rate rhythm, no murmur gallop or rub. Abdomen:Frm , mildly distended ,tender on palpation, no organomegaly Extremities:No cyanosis clubbing or edema. Central Nervous System: Nonfocal. Moves all four extremities Musculoskeletal:No joint swelling or deformities Skin:No rash or ulcers Other Results Medications reviewed Problem\Assessment\Plan 60 years old female presented to the ER for evaluation of abdominal pain. 1. Gastritis/antral ulcer/colitis: Continue IV antibiotics and IV Protonix. Patient underwent an EGD which showed LA grade B reflux esophagitis with no bleeding and ulcer in the stomach with active bleeding.Continues to have vomiting , colonoscopy was deferred . CT pending . 2. Probable bacterial colitis: Continue IV antibiotics 3. Fecal impaction: Patient is presently drinking GoLYTELY 4. Hypothyroidism: Continue levothyroxine 5. Depression/bipolar disorder: Continue trazodone , Abilify and Depakote. 6. Hyponatermia IVF and monitor 7. ? Acidosis Low bicarb will check lactic acid level Code status: Full code Date of Service: Jun 02, 2025 Billing Provider: KIMANI DONAHUE MD Common Visit Codes: [id number] INP/OBS CARE(HIGH) KIMANI DONAHUE MD Jun 02, 2025 16:57
[2025-06-02] MEDS ORDERED: iohexol 300mg/ml 100ml inj. ONE (17:57)
--- NOTE | 2025-06-02 19:10 | RADIOLOGY REPORT ---
Exam: CT CT ABDOMEN PELVIS W/ IV ORAL CONTRAST History: rule out bowel obstruction Comparison Study: CT CT ABDOMEN PELVIS W/ IV CONTRAST on DOS: 05/31/25 TECHNIQUE: Multidetector CT of the abdomen and pelvis with IV contrast. Axial, coronal and sagittal m ultiplanar reformats were obtained from the axial data set by the technologist. Radiation Dose Information: CT Dose: CTDI volume is 14.52 mGy. Dose-length product is 814.46 mGy*cm FINDINGS: Small to moderate bilateral pleural effusion with bibasilar opacities . Partially visualized heart i s unremarkable. Large volume ascites with pneumoperitoneum, significantly progressed from prior imaging. Status post cholecystectomy. Medial displacement of the liver and spleen by the large volume ascites. Otherwise, liver, spleen, pancreas and adrenal glands unremarkable. Kidneys, ureters and urinary bladder unremarkable. Uterus and adnexa unremarkable. Fluid-filled vynk-bz-ryzdaddtmw distended distal esophagus. Small hiatal hernia with narrowing of the GE junction. Mild gastric wall thickening . Mild wall Thickening of proximal small bowel loops . Flu id-filled nondistended segment of proximal small bowel. The remainder of the small bowel loops unrema rkable. Appendix is normal in size with surrounding ascites limited evaluation for periappendiceal in flammatory reaction. Mild wall thickening of the decompressed ascending colon. Small to moderate amou nt of fecal material within the remainder of the colon. No evidence of aortic aneurysm or dissection. Mild atherosclerotic calcification of the aorta. No significant mesenteric lymphadenopathy. Mild body wall edema. Small fat containing right inguinal hernia. No evidence of acute osseous abnorm alities. Anterior wedge deformity of T9 of unknown chronicity with T12 superior endplate Schmorl node . IMPRESSION: Interval development of large volume ascites with pneumoperitoneum. Perforated viscus suspected. Gastric wall thickening most prominent distally . Correlate for gastritis ; mildly improved from christi or imaging. Redemonstration of ascending colon Colitis. Mild wall Thickening of proximal small bowel loops which may be from the surrounding ascites/enteriti s. The distal esophagus is fluid-filled and eixt-bl-txleajtjjk distended with small hiatal hernia narrow ing of the GE junction. Small to moderate bilateral pleural effusions with associated atelectasis. Bibasilar pneumonia can n ot be excluded. Critical Result: Possible perforated viscus with pneumoperitoneum Findings discussed with patient's nurse Margie at 06/02/2025 07:07 PM, and acknowledged receipt and un derstanding of the findings. ..
[2025-06-02] MEDS: normal saline 1000ml 1,000 ML IV SCH (20:00)
[2025-06-02] MEDS ORDERED: BUPIVAcaine/PF 2.5mg/ml (0.25%) 10ml vial ONE (20:15)
[2025-06-02] MEDS ORDERED: LIDOcaine 1% 30ml preserv. free vial ONE (20:16)
[2025-06-02] MEDS: normal saline 1000ml 1,000 ML IV ONE (20:19)
[2025-06-02] MEDS: dextrose 50%-water 50ml dispensing syringe IV PRN (20:23)
--- NOTE | 2025-06-02 20:26 | PROGRESS NOTE ---
Progress Note ID Providers to CC ~ Progress Note Progress Note: PT SEEN AND EXAMINED-CT REVIEWED-FINDINGS CONSISTENT WITH PERFORATED VISCUS-PT NEEDS EX LAP-DISCUSSED PROCEDURE INCLUDING RISKS/BENEFITS/ALTERNATIVES JOS LOREDO MD Jun 02, 2025 20:26
[2025-06-02] MEDS ORDERED: rocuronium 10mg/ml inj IV ONE (20:33)
[2025-06-02] MEDS ORDERED: propofol inj 20 ML IV ONE (20:34)
[2025-06-02] MEDS ORDERED: fentaNYL /PF 50mcg/ml 5ml ampule ONE (20:35)
[2025-06-02 20:43] LABS: MEAN PLATELET VOLUME 8.5 FL (7.4-10.4); RED CELL DISTRIBUTION WIDTH 14.1 % (11.5-14.5)
[2025-06-02] MEDS ORDERED: albumin (Human) 5% 250ml 250 ML IV ONE ×4 (21:07→21:54)
[2025-06-02] MEDS ORDERED: ceFOXitin 1000 MG inj ONE ×2 (21:08)
[2025-06-02 21:21] LABS: CREATININE 2.48 MG/DL (0.40-0.90); TOTAL CARBON DIOXIDE 19.7 MMOL/L (24-32); eCRCL 20 ML/MIN; eGFR 20 ML/MIN
[2025-06-02 21:22] LABS: NEUTROPHILS % (MANUAL) 81 % (42-75)
[2025-06-02 21:23] LABS: BANDS% (MANUAL) 12 % (0-10); LYMPHOCYTES % (MANUAL) 5 % (21-51); MONOCYTES % (MANUAL) 2 % (2-12); NUCLEATED RED BLOOD CELLS 1 /100WBC (0-0); PLATELET ESTIMATE NORMAL
[2025-06-02] MEDS ORDERED: HYDROmorphone/PF 0.2 MG/ML SYRINGE IV PRN (21:50)
[2025-06-02] MEDS ORDERED: morphine 4 MG/ML inj SYRINge IV PRN (21:50)
[2025-06-02] MEDS ORDERED: ondansetron/PF 4mg/2ml inj IV PRN (21:50)
--- NOTE | 2025-06-02 22:12 | OPERATIVE REPORT ---
Operative Report Providers to CC ~ Date of Procedure: Jun 02, 2025 Pre-Operative Diagnosis: perforated viscus Post-Operative Diagnosis perforated prepyloric ulcer Procedure Performed ex lap/repair perforated gastric ulce Surgeon: mague Staff Research Scientist none Anesthesiologist: Constantino Plascencia Type of Anesthesia: General Findings: perforated prepyloric ulcer with extensive amount bilious fluid Estimated Blood Loss: min Specimen Removed: bilious fluid JOS LOREDO MD Jun 02, 2025 22:12
[2025-06-02] MEDS ORDERED: fentaNYL 50mcg/ml PF inj. 2,500 MCG in normal saline 250ml IV soln 200 ML IV SCH (22:15)
[2025-06-02] MEDS: propofol 1000mg/100ml bottle 100 ML IV SCH (22:57)
[2025-06-02 23:02] LABS: ABG BASE EXCESS -9.6 mmol/L (-2.0-3.0); ABG HCO3 15.8 mmol/L (21.0-28.0); ABG OXYGEN SATURATION 97.3 % (94.0-98.0); ABG PCO2 (T) 31.0 mmHg (32.0-45.0); ABG PH (T) 7.318 (7.350-7.450); ABG PO2 (T) 100.9 mmHg (83.0-108.0); ALLEN'S TEST POSITIVE; FCOHb 0.3 % (0.5-1.5); FHHb 2.7 % (0.0-5.0); FIO2 50.0 mmHg/%; FMetHb 0.3 % (0.0-1.5); FO2Hb 96.7 % (94.0-98.0); MODE VENT - SIMV; PATIENT TEMPERATURE 35.6; PEEP 5 cm H2O; RESPIRATORY RATE 12 b/min; TIDAL VOLUME 500 mL; TOTAL HEMOGLOBIN 12.8 G/dl (12.0-16.0)
--- NOTE | 2025-06-02 23:09 | RADIOLOGY REPORT ---
CHEST RADIOGRAPH Indication: et tube Technique: Single frontal view of the chest was obtained COMPARISON: None FINDINGS: Lines and Tubes: Endotracheal tube tip projects approximately 4.1 cm above the level of the quincy. E nteric catheter courses below the level of the diaphragm, terminating within the left upper quadrant, presumably within the gastric lumen. Right internal jugular central venous catheter appears to be lo oped back upon itself within the superior vena cava. Lungs: Probable small right pleural effusion. Bibasilar pulmonary airspace disease and/or atelectasi s. No pneumothorax. Cardiomediastinal contours: Unremarkable Bones: Unremarkable IMPRESSION: 1. Small right pleural effusion with bibasilar pulmonary airspace disease and/or atelectasis. 2. Endotracheal and enteric tubes in appropriate position. 3. Right internal jugular central venous catheter appears to be looped back upon itself within the gamboa perior vena cava.
[2025-06-02] MEDS: ringers solution, lacted 1,000 ML IV SCH (23:16)
[2025-06-02] MEDS: piperacillin/tazo 3.375gm/50ml 50 ML IV SCH (23:34)
[2025-06-02] MEDS: FENTANYL-0.9 % NACL/PF 100 ML IV SCH (23:59)
[2025-06-03] VITALS (28 sets, daily range): BP systolic 104–148; BP diastolic 64–83; PULSE 85–114; RESP 12–24; TEMP 97.2; O2SAT 94–100
[2025-06-03] MEDS: sodium bicarbonate (8.4%) inj. 150 MEQ in dextrose 5%-water 1,000 ML IV SCH (00:01)
--- NOTE | 2025-06-03 00:03 | CONSULTATION ---
DATE OF CONSULTATION: 06/02/2025 DICTATING PHYSICIAN: Jarrett Jacome MD REASON FOR CONSULTATION: Evaluation for pneumoperitoneum. HISTORY OF PRESENT ILLNESS: The patient is a 60-year-old female who was admitted on 05/31 with complaints of abdominal discomfort. CAT scan revealed evidence of gastritis. The patient underwent EGD on 06/01. CAT scan today revealed a large amount of free fluid with pneumoperitoneum. Surgical evaluation is now requested for the question of basically severe abdominal discomfort. Dictation Ends Here Jarrett Jacome MD TID: [id number] RECEIPT: [id number] DANIEL/YOK
[2025-06-03 00:06] LABS: MEAN PLATELET VOLUME 7.9 FL (7.4-10.4); RED CELL DISTRIBUTION WIDTH 14.3 % (11.5-14.5)
[2025-06-03 00:19] LABS: CREATININE 2.36 MG/DL (0.40-0.90); TOTAL CARBON DIOXIDE 18.9 MMOL/L (24-32); eCRCL 21 ML/MIN; eGFR 21 ML/MIN
[2025-06-03 00:34] LABS: BANDS% (MANUAL) 19 % (0-10); LARGE PLATELETS FEW; LYMPHOCYTES % (MANUAL) 8 % (21-51); MONOCYTES % (MANUAL) 1 % (2-12); NEUTROPHILS % (MANUAL) 72 % (42-75); PLATELET ESTIMATE NORMAL
[2025-06-03] MEDS: albumin (Human) 5% 250ml 250 ML IV ONE ×2 (02:51→04:18)
[2025-06-03] MEDS: pantoprazole 40MG/NS 100ML BAG 100 ML IV SCH (02:51)
[2025-06-03] MEDS: pantoprazole 40MG/NS 100ML BAG 100 ML IV ONE (03:06)
[2025-06-03 03:23] LABS: ABG BASE EXCESS -6.1 mmol/L (-2.0-3.0); ABG HCO3 18.6 mmol/L (21.0-28.0); ABG OXYGEN SATURATION 96.1 % (94.0-98.0); ABG PCO2 (T) 33.3 mmHg (32.0-45.0); ABG PH (T) 7.362 (7.350-7.450); ABG PO2 (T) 80.7 mmHg (83.0-108.0); ALLEN'S TEST Modified; FCOHb 0.8 % (0.5-1.5); FHHb 3.9 % (0.0-5.0); FIO2 40.0 mmHg/%; FMetHb 0.3 % (0.0-1.5); FO2Hb 95.0 % (94.0-98.0); MODE VENT - SIMV; PATIENT TEMPERATURE 36.3; PEEP 5 cm H2O; RESPIRATORY RATE 12 b/min; TIDAL VOLUME 500 mL; TOTAL HEMOGLOBIN 12.8 G/dl (12.0-16.0)
--- NOTE | 2025-06-03 07:35 | CONSULTATION ---
DATE OF CONSULTATION: 06/02/2025 DICTATING PHYSICIAN: Jarrett Jacome MD REASON FOR CONSULTATION: Evaluation of umbilical hernia. HISTORY OF PRESENT ILLNESS: The patient is a 60-year-old female with abdominal discomfort. CAT can revealed evidence of gastritis. The patient underwent an EGD on 06/01/2025. The patient CAT scan was done on 06/02/2025, which revealed a large amount of free air and a large amount of free fluids. Surgical evaluation is now requested. On further questioning, the patient has persistent diffuse abdominal discomfort. PAST MEDICAL HISTORY: Significant for hypothyroidism, arthritis, missed diagnosis of peptic ulcer disease. PAST SURGICAL HISTORY: cholecystectomy. HOME MEDICATIONS: . ALLERGIES: CODEINE, AZITHROMYCIN. SOCIAL HISTORY: Ongoing tobacco use. Denies alcohol use. PHYSICAL EXAMINATION: GENERAL: Well-nourished female, in minimal distress. VITAL SIGNS: Unremarkable. HEART: Regular rate and rhythm. LUNGS: Clear to auscultation. ABDOMEN: Distended abdomen and diffuse tenderness consistent with peritonitis. EXTREMITIES: Unremarkable. NEUROLOGIC: Nonfocal. LABORATORY DATA: Labs included WBC of 9.6, hematocrit 45, platelet count 246. Sodium 125, potassium 4.3, chloride 90, CO2 of 19, calcium 8.3. IMAGING STUDIES: CT abdomen and pelvis revealed a large amount of free air and large amount of free fluid. IMPRESSION: * Perforated viscus. * History of peptic ulcer disease. * Hypothyroidism. * Hyponatremia. PLAN: * Hydrate. * IV antibiotics. * Protonix drip. * Laparotomy with exploration. Jarrtet Jacome MD TID: [id number] RECEIPT: [id number] DANIEL/VAZQUEZ/AMI
--- NOTE | 2025-06-03 07:40 | OPERATIVE REPORT ---
DATE OF SURGERY: 06/02/2025 DICTATING PHYSICIAN: Jarrett Jacome MD PREOPERATIVE DIAGNOSIS: Perforated viscus POSTOPERATIVE DIAGNOSIS: Perforated prepyloric gastric ulcer. PROCEDURE PERFORMED: * Exploratory laparotomy. * Repair of prepyloric perforated gastric ulcer using Brett patch. SURGEON: Jarrett Jacome MD APPLICATIONS SUPPORT LEAD: None. ANESTHESIA: General/Dr. Plascencia. DRAINS: . INDICATIONS FOR OPERATION: A 60-year-old female admitted with abdominal pain, found to have gastritis, underwent an EGD on 06/01/2025. Followup scan on 06/02/2025 revealed extensive pneumoperitoneum and a large amount of fluid in the abdominal cavity. The patient was taken to surgery for laparotomy and found to have peritonitis. INTRAOPERATIVE FINDINGS: The patient had a perforated prepyloric channel ulcer with a large amount of gastric contents in the peritoneal cavity. DESCRIPTION OF PROCEDURE: The patient was placed supine on the operating table. After induction of general anesthesia, placement of endotracheal tube, the abdomen was prepped and draped. A midline incision was made and the abdomen was explored. There was a large amount of gastric contents in the peritoneal cavity. These were evacuated. The abdomen was then explored. The patient was found to have a prepyloric channel ulcer. Omentum was mobilized off the transverse colon. Prepyloric channel ulcer was closed using sutures of 0 Vicryl. Tails were used to secure the omentum of the repair. The abdomen was then copiously irrigated with large amount of antibiotic-containing solution. A #19 Angelo drain was placed through the incision in the left upper quadrant and directed across the repair site into the right gutter. when counts were correct, suture of looped PDS. Skin was closed with clips. Robert placed and dressing applied. The patient was transferred to the ICU in critical condition. Jarrett Jacome MD TID: [id number] RECEIPT: [id number] DANIEL/VAZQUEZ/TONY
--- NOTE | 2025-06-03 08:05 | RADIOLOGY REPORT ---
CHEST RADIOGRAPH Indication: ET Tube PLacement Technique: Single frontal view of the chest was obtained Comparison: DI CHEST,SINGLE VIEW on DOS: 06/02/25, DI CHEST,SINGLE VIEW on DOS: 06/02/25 FINDINGS: Lines and Tubes: Endotracheal tube tip projects approximately 4.1 cm above the level of the quincy. E nteric catheter courses below the level of the diaphragm, terminating within the left upper quadrant, presumably within the gastric lumen. Right internal jugular central venous catheter appears to be lo oped back upon itself within the superior vena cava. Lungs: Probable small right pleural effusion. Bibasilar pulmonary airspace disease and/or atelectasi s. No pneumothorax. Cardiomediastinal contours: Unremarkable Bones: Unremarkable IMPRESSION: No interval change.
[2025-06-03] MEDS ORDERED: ARIP15TA68 PO (11:00)
[2025-06-03] MEDS ORDERED: [UNRECOGNIZED DRUG - OTHER] PO (11:01)
[2025-06-03] MEDS ORDERED: PRAZ2CAP2 PO (11:01)
[2025-06-03] MEDS ORDERED: LEVO88TA7 PO (11:01)
[2025-06-03] MEDS ORDERED: PANT40TA54 PO (11:01)
[2025-06-03 11:14] LABS: ABG BASE EXCESS -3.3 mmol/L (-2.0-3.0); ABG HCO3 20.4 mmol/L (21.0-28.0); ABG OXYGEN SATURATION 97.8 % (94.0-98.0); ABG PCO2 (T) 32.2 mmHg (32.0-45.0); ABG PH (T) 7.420 (7.350-7.450); ABG PO2 (T) 106.6 mmHg (83.0-108.0); ALLEN'S TEST POSITIVE; FCOHb 0.3 % (0.5-1.5); FHHb 2.2 % (0.0-5.0); FIO2 40.0 mmHg/%; FMetHb 0.0 % (0.0-1.5); FO2Hb 97.5 % (94.0-98.0); MODE VENT - CPAP; PATIENT TEMPERATURE 37.2; PEEP 5 cm H2O; TOTAL HEMOGLOBIN 11.0 G/dl (12.0-16.0)
[2025-06-03] MEDS: HYDROmorphone/PF 0.2 MG/ML SYRINGE IV PRN (11:33)
[2025-06-03] MEDS: Permethrin 1% 59ml topical rinse TP ONE (15:00)
--- NOTE | 2025-06-03 17:59 | PROGRESS NOTE ---
Daily Progress Note Providers to CC ~ Antibiotic Timeout Antibiotic Ordered?: Yes If Yes, Indications: Zosyn Subjective No new complaints, patient seen resting comfortably , seen in ICU Objective Vital Signs Date Time Temp Pulse Resp B/P (MAP) Pulse Ox O2 Delivery O2 Flow Rate FiO2 06/03/25 17:25 Nasal Cannula 2.0 06/03/25 17:00 98.8 86 13 119/68 (85) 99 06/03/25 11:00 40 Result Diagram: 06/02/25 2355 06/02/25 2355 Awake alert cooperative in no acute distress. HEENT:Normocephalic, atraumatic, extraocular movements are intact, sclerae anicteric, conjunctiva pink, moist oral mucosa. Neck:Supple, no JVD, trachea midline, no lymphadenopathy. Chest:Clear to auscultation, no wheezes crackles or rhonchi. Cardiovascular:Regular rate rhythm, no murmur gallop or rub. Abdomen:Frm , mildly distended ,tender on palpation, no organomegaly Extremities:No cyanosis clubbing or edema. Central Nervous System: Nonfocal. Moves all four extremities Musculoskeletal:No joint swelling or deformities Skin:No rash or ulcers Other Results Medications reviewed Problem\Assessment\Plan 60 years old female presented to the ER for evaluation of abdominal pain. 1. Gastritis/antral ulcer/colitis/Viscus perforation : Continue IV antibiotics and IV Protonix. Patient underwent an EGD which showed LA grade B reflux esophagitis with no bleeding and ulcer in the stomach with active bleeding. CT showed viscus perforation and patient underwent ex lap/repair. Doing well postoperatively. Treat per surgery recommendations. 2. Probable bacterial colitis: Continue IV antibiotics 3. Fecal impaction: Bowel care per protocol 4. Hypothyroidism: Continue levothyroxine. Switch to IV if patient is unable to take PO 5. Depression/bipolar disorder: Continue trazodone , Abilify and Depakote. 6. Hyponatermia IVF and monitor 7. Lactic acidosis : Continue IV F 8. CHRISTIAN /CKD ; Tubular stasis , continue IV F and monitor daily BMP, Cr is trending down. Nephrology consult if Cr. gets worse 9. Code status: Full code Critical care time spent in excess of 35 min Date of Service: Jun 03, 2025 Billing Provider: KIMANI DONAHUE MD Common Visit Codes: [id number] CARE 30-74 MIN KIMANI DONAHUE MD Jun 03, 2025 17:59
--- NOTE | 2025-06-03 20:39 | PROGRESS NOTE ---
Progress Note ID Providers to CC ~ Progress Note Progress Note: doing well/cont supportive care JOS LOREDO MD Jun 03, 2025 20:39
[2025-06-03] MEDS ORDERED: divalproex sod 125mg sprinkle cap NG SCH (21:10)
[2025-06-03 21:40] LABS: CREATININE 1.58 MG/DL (0.40-0.90); TOTAL CARBON DIOXIDE 22.3 MMOL/L (24-32); eCRCL 32 ML/MIN; eGFR 33 ML/MIN
[2025-06-03] MEDS: divalproex sod 125mg sprinkle cap NG SCH (21:41)
[2025-06-03] MEDS ORDERED: magnesium sulf-water 4G/100mL 100 ML IV PRN (21:55)
[2025-06-03] MEDS ORDERED: magnesium Cl slow-release 64mg tablet PO PRN (21:55)
[2025-06-03] MEDS ORDERED: magnesium sulf-water 2g/50mL 50 ML IV PRN (21:55)
[2025-06-03] MEDS: potassium Cl 20 mEq SR tablet PO PRN (22:20)
[2025-06-03] MEDS: HYDROmorphone inj. 0.5 MG/0.5 ML DISP.SYRIN IV PRN (23:10)
[2025-06-03] MEDS: potassium Cl 40MEQ/1/2NS 520ml 520 ML IV ONE (23:54)
[2025-06-04] VITALS (8 sets, daily range): BP systolic 105–117; BP diastolic 60–75; PULSE 89–103; RESP 14–20; TEMP 97.7–98.4; O2SAT 88–96
[2025-06-04] MEDS: potassium Cl 40MEQ/1/2NS 520ml 520 ML IV PRN (02:46)
--- NOTE | 2025-06-04 10:48 | PROGRESS NOTE ---
Daily Progress Note Providers to CC ~ Antibiotic Timeout Antibiotic Ordered?: Yes Subjective Remains in isolation. Requesting ice chips. Objective Vital Signs Date Time Temp Pulse Resp B/P (MAP) Pulse Ox O2 Delivery O2 Flow Rate FiO2 06/04/25 09:32 18 06/04/25 08:57 95 Nasal Cannula 2.0 06/04/25 06:30 92 06/04/25 06:00 97.8 105/70 (82) 06/03/25 11:00 40 Result Diagram: 06/02/25235406/03/251953 Awake alert cooperative in no acute distress. HEENT:Normocephalic, atraumatic, extraocular movements are intact, sclerae anicteric, conjunctiva pink, moist oral mucosa. Neck:Supple, no JVD, trachea midline, no lymphadenopathy. Chest:Clear to auscultation, no wheezes crackles or rhonchi. Cardiovascular:Regular rate rhythm, no murmur gallop or rub. Abdomen:Frm , mildly distended ,tender on palpation, no organomegaly Extremities:No cyanosis clubbing or edema. Central Nervous System: Nonfocal. Moves all four extremities Musculoskeletal:No joint swelling or deformities Skin:No rash or ulcers Other Results Medications reviewed Problem\Assessment\Plan 60 years old female presented to the ER for evaluation of abdominal pain. 1. Gastritis/antral ulcer/colitis/Viscus perforation : Continue IV antibiotics and IV Protonix. Patient underwent an EGD which showed LA grade B reflux esophagitis with no bleeding and ulcer in the stomach with active bleeding. CT showed viscus perforation and patient underwent ex lap/repair. Doing well postoperatively. Treat per surgery recommendations. 2. Probable bacterial colitis: Continue IV antibiotics 3. Fecal impaction: Bowel care per protocol 4. Hypothyroidism: Continue levothyroxine. Switch to IV if patient is unable to take PO 5. Depression/bipolar disorder: Continue trazodone , Abilify and Depakote. 6. Hyponatermia IVF and monitor 7. Lactic acidosis : Continue IV F 8. CHRISTIAN /CKD ; Tubular stasis , continue IV F and monitor daily BMP, Cr is trending down. 9. Code status: Full code Date of Service: Jun 04, 2025 Billing Provider: KIMANI DONAHUE MD Common Visit Codes: [id number] INP/OBS CARE(HIGH) KIMANI DONAHUE MD Jun 04, 2025 10:48
--- NOTE | 2025-06-04 12:53 | PROGRESS NOTE ---
Progress Note ID Providers to CC ~ Progress Note Progress Note: pain improving/vss/abd-nondistended/drain output noted/labs pending a/p 1. s/p repair perf ulcer-slow progress/cont protonix-pt JOS LOREDO MD Jun 04, 2025 12:53
[2025-06-04 13:06] LABS: CREATININE 1.05 MG/DL (0.40-0.90); TOTAL CARBON DIOXIDE 25.3 MMOL/L (24-32); eCRCL 48 ML/MIN; eGFR 54 ML/MIN
[2025-06-04 13:44] LABS: MEAN PLATELET VOLUME 7.7 FL (7.4-10.4); RED CELL DISTRIBUTION WIDTH 14.5 % (11.5-14.5)
[2025-06-04] MEDS: divalproex sodium 500mg tablet.DR PO SCH (22:53)
[2025-06-05] VITALS (8 sets, daily range): BP systolic 100–137; BP diastolic 54–69; PULSE 93–97; RESP 14–24; TEMP 97.5–98.8; O2SAT 88–96
[2025-06-05 07:21] LABS: MEAN PLATELET VOLUME 7.7 FL (7.4-10.4); RED CELL DISTRIBUTION WIDTH 14.4 % (11.5-14.5)
[2025-06-05 07:40] LABS: CREATININE 0.74 MG/DL (0.40-0.90); TOTAL CARBON DIOXIDE 25.9 MMOL/L (24-32); eCRCL 68 ML/MIN; eGFR 80 ML/MIN
[2025-06-05 07:57] LABS: BANDS% (MANUAL) 5.0 % (0-10); LYMPHOCYTES % (MANUAL) 6.0 % (21-51); METAMYLEOCYTES% (MANUAL) 1.0 % (0-0); MONOCYTES % (MANUAL) 1.0 % (2-12); NEUTROPHILS % (MANUAL) 87.0 % (42-75); PLATELET ESTIMATE DECREASED
[2025-06-05 10:42] LABS: MEAN PLATELET VOLUME 7.5 FL (7.4-10.4); RED CELL DISTRIBUTION WIDTH 14.2 % (11.5-14.5)
[2025-06-05 10:51] LABS: CREATININE 0.79 MG/DL (0.40-0.90); TOTAL CARBON DIOXIDE 27.3 MMOL/L (24-32); eCRCL 63 ML/MIN; eGFR 74 ML/MIN
[2025-06-05 11:38] LABS: BANDS% (MANUAL) 8.0 % (0-10); EOSINOPHILS % (MANUAL) 1.0 % (0-6); LYMPHOCYTES % (MANUAL) 3.0 % (21-51); METAMYLEOCYTES% (MANUAL) 2.0 % (0-0); MONOCYTES % (MANUAL) 3.0 % (2-12); NEUTROPHILS % (MANUAL) 83.0 % (42-75); PLATELET ESTIMATE DECREASED
--- NOTE | 2025-06-05 14:15 | PROGRESS NOTE ---
Daily Progress Note Providers to CC ~ Antibiotic Timeout Antibiotic Ordered?: Yes If Yes, Indications: Zosyn for a total of one week Subjective No new complaints. Patient is getting ready to work with PT. Objective Vital Signs Date Time Temp Pulse Resp B/P (MAP) Pulse Ox O2 Delivery O2 Flow Rate FiO2 06/05/25 13:30 14 06/05/25 10:00 97.5 95 112/64 (80) 93 Nasal Cannula 3.0 06/03/25 11:00 40 Result Diagram: 06/05/25 1033 06/05/25 1033 Awake alert cooperative in no acute distress. HEENT:Normocephalic, atraumatic, extraocular movements are intact, sclerae anicteric, conjunctiva pink, moist oral mucosa. Neck:Supple, no JVD, trachea midline, no lymphadenopathy. Chest:Clear to auscultation, no wheezes crackles or rhonchi. Cardiovascular:Regular rate rhythm, no murmur gallop or rub. Abdomen:Frm , mildly distended ,tender on palpation, no organomegaly Extremities:No cyanosis clubbing or edema. Central Nervous System: Nonfocal. Moves all four extremities Musculoskeletal:No joint swelling or deformities Skin:No rash or ulcers Other Results Medications reviewed Problem\Assessment\Plan 60 years old female presented to the ER for evaluation of abdominal pain. 1. Gastritis/antral ulcer/colitis/Viscus perforation : Continue IV antibiotics and IV Protonix. Patient underwent an EGD which showed LA grade B reflux esophagitis with no bleeding and ulcer in the stomach with active bleeding. Patient continued to vomit and underwent a CT which showed viscus perforation and patient underwent ex lap/repair. Doing well postoperatively. Treat per surgery recommendations. 2. Probable bacterial colitis: Continue IV antibiotics. On IV zosyn , consider DC after one week 3. Fecal impaction: Bowel care per protocol 4. Hypothyroidism: Continue levothyroxine. 5. Depression/bipolar disorder: Continue trazodone , Abilify and Depakote. 6. Hyponatermia IVF and monitor 7. Lactic acidosis : Continue IV F 8. CHRISTIAN /CKD ; Tubular stasis , continue IV F and monitor daily BMP, Cr is trending down. 9. Hypokalemia replace per protocol 10. Disposition: Home when cleared by surgery. Patient is from the [facility]. 11.Code status full code. Date of Service: Jun 05, 2025 Billing Provider: KIMANI DONAHUE MD Common Visit Codes: [id number] INP/OBS CARE(HIGH) KIMANI DONAHUE MD Jun 05, 2025 14:15
--- NOTE | 2025-06-05 17:21 | PROGRESS NOTE ---
Progress Note ID Providers to CC ~ Progress Note Progress Note: pain improving/vss/abd-drain output noted a/p 1. s/p repair perf gu-doing well/cont sjupportive care JOS LOREDO MD Jun 05, 2025 17:21
[2025-06-05] MEDS: potassium Cl 20 mEq SR tablet PO PRN (22:27)
[2025-06-06] VITALS (8 sets, daily range): BP systolic 97–130; BP diastolic 58–85; PULSE 84–108; RESP 11–22; TEMP 97–99.1; O2SAT 93–97
[2025-06-06 07:16] LABS: CREATININE 0.82 MG/DL (0.40-0.90); TOTAL CARBON DIOXIDE 21.9 MMOL/L (24-32); eCRCL 61 ML/MIN; eGFR 71 ML/MIN
[2025-06-06] MEDS ORDERED: dextrose 50%-water 50ml dispensing syringe IV PRN (07:40)
[2025-06-06] MEDS ORDERED: glucagon, human recombinant 1mg kit SUBCUT PRN (07:40)
[2025-06-06] MEDS ORDERED: DEXTROSE 15 GM of carb/4 tabs (each vial/BOTTLE has 4 tablets) PO PRN (07:40)
[2025-06-06] MEDS: dextrose 50%-water 50ml dispensing syringe IV PRN (08:16)
[2025-06-06 09:40] LABS: MEAN PLATELET VOLUME 7.9 FL (7.4-10.4); RED CELL DISTRIBUTION WIDTH 14.3 % (11.5-14.5)
--- NOTE | 2025-06-06 13:01 | RADIOLOGY REPORT ---
CHEST RADIOGRAPH Indication: coarse breathsounds upper lung wade Technique: Single frontal view of the chest was obtained Comparison: DI CHEST,SINGLE VIEW on DOS: 06/03/25, DI CHEST,SINGLE VIEW on DOS: 06/02/25, DI CHEST,SINGLE VIEW on DOS: 06/03/25 FINDINGS: Lines and Tubes: Lines and tubes have been removed. Lungs: Probable moderate right pleural effusion. Bibasilar pulmonary airspace disease and/or atelec tasis. Small left pleural effusion No pneumothorax. Cardiomediastinal contours: Unremarkable Bones: Unremarkable IMPRESSION: Probable moderate right pleural effusion. Bibasilar pulmonary airspace disease and/or atelectasis. Small left pleural effusion
[2025-06-06] MEDS ORDERED: metoclopramide 5 mg/ml inj IV PRN (13:55)
--- NOTE | 2025-06-06 15:12 | PROGRESS NOTE ---
Progress Note ID Providers to CC ~ Progress Note Progress Note: slow progress/cont supportive care JOS LOREDO MD Jun 06, 2025 15:12
--- NOTE | 2025-06-06 22:15 | PROGRESS NOTE ---
Daily Progress Note Providers to CC ~ Antibiotic Timeout Antibiotic Ordered?: Yes Subjective The patient is complaining of shortness of breath and on exam the patient had significant coarse breath sounds in the upper lung wade I have ordered a chest x-ray which demonstrated a moderate right pleural effusion and I ordered a diagnostic and therapeutic thoracentesis Objective Vital Signs Date Time Temp Pulse Resp B/P (MAP) Pulse Ox O2 Delivery O2 Flow Rate FiO2 06/06/25 21:35 16 06/06/25 18:30 104 06/06/25 15:00 97.2 105/72 (83) 97 Nasal Cannula 3.0 06/03/25 11:00 40 Result Diagram: 06/06/25 0915 06/06/25 0607 Gen. No acute distress alert and oriented 4 Lungs significant coarse breath sounds in the upper lung wade bilaterally, Heart normal sinus rhythm no murmurs rubs or clicks noted Abdomen soft nontender bowel sounds are normoactive Lower extremities no clubbing cyanosis, nor edema appreciated bilaterally Problem\Assessment\Plan 60 years old female presented to the ER for evaluation of abdominal pain. 1. Gastritis/antral ulcer/colitis/Viscus perforation : Continue IV antibiotics and IV Protonix. Patient underwent an EGD which showed LA grade B reflux esophagitis with no bleeding and ulcer in the stomach with active bleeding. Patient continued to vomit and underwent a CT which showed viscus perforation and patient underwent ex lap/repair. Doing well postoperatively. Treat per surgery recommendations. 2. Probable bacterial colitis: Continue IV antibiotics. On IV zosyn , consider DC after one week 3. Fecal impaction: Bowel care per protocol 4. Hypothyroidism: Continue levothyroxine. 5. Depression/bipolar disorder: Continue trazodone , Abilify and Depakote. 6. Hyponatermia IVF and monitor 7. Lactic acidosis : Resolved 8. CHRISTIAN /CKD ; possibly secondary to Renal Tubular stasis , continue IV F and monitor daily BMP, Cr is trending down. 9. Hypokalemia replace per protocol 10. Disposition: Patient remains significantly weak and is requiring significant assitance with ambulation. Case management is working on rehab placement 11.Code status full code. Date of Service: Jun 06, 2025 Billing Provider: SARAI BUSTOS DO Common Visit Codes: [id number] INP/OBS CARE(HIGH) SARAI BUSTOS DO Jun 06, 2025 22:15
[2025-06-07] VITALS (11 sets, daily range): BP systolic 91–108; BP diastolic 54–67; PULSE 86–99; RESP 11–18; TEMP 97.1–98.5; O2SAT 90–97
[2025-06-07 05:13] LABS: MEAN PLATELET VOLUME 7.7 FL (7.4-10.4); RED CELL DISTRIBUTION WIDTH 14.3 % (11.5-14.5)
[2025-06-07 05:30] LABS: CREATININE 0.61 MG/DL (0.40-0.90); TOTAL CARBON DIOXIDE 28.8 MMOL/L (24-32); eCRCL 82 ML/MIN; eGFR > 90 ML/MIN
[2025-06-07 05:41] LABS: BANDS% (MANUAL) 1.0 % (0-10); LYMPHOCYTES % (MANUAL) 3.0 % (21-51); METAMYLEOCYTES% (MANUAL) 1.0 % (0-0); MONOCYTES % (MANUAL) 3.0 % (2-12); NEUTROPHILS % (MANUAL) 92.0 % (42-75)
[2025-06-07 05:42] LABS: PLATELET ESTIMATE NORMAL
[2025-06-07 11:47] LABS: BFSOURCE LEFT PLEURAL FLD; PLEURAL FLUID PH 7.558 (7.63-7.65)
--- NOTE | 2025-06-07 11:49 | PROCEDURE NOTE CC ---
Procedure Note CC Providers to CC ~ Procedure Name: Thoracentesis Description: Indication: Pleural Effusion Time-out: Done Consent: Pt Site: L-side Anesthesia: Local Technique: US guided Fluid: 800ml clear yellow. Samples sent to lab Complication: None EBL: 0ml Sepsis Screening Reassessment Date: Jun 07, 2025 DOUGLAS SWAIN MD Jun 07, 2025 11:49
[2025-06-07 12:01] LABS: GLUCOSE,BODY FLUID 75 MG/DL; LDH,BODY FLUID 153 U/L
[2025-06-07 12:10] LABS: BFAPPEAR HAZY; BFSOURCE LEFT PLEURAL FLD
[2025-06-07 12:11] LABS: BF RBC COUNT 41 /CU MM; BF WBC COUNT 210 /CU MM (0-1000); BFCOLOR YELLOW; BFVOLUME 50 ML; LYMPHOCYTES,BODY FLUID 6 %; MONOCYTES,BODY FLUID 8 %; NEUTROPHILS,BODY FLUID 86 %
[2025-06-07 12:14] LABS: TOTAL PROTEIN,BODY FLUID < 2.0 G/DL
[2025-06-07] MEDS: magnesium hydroxide 30ml (MOM) UD suspension PO SCH (13:05)
--- NOTE | 2025-06-07 13:05 | RADIOLOGY REPORT ---
PROCEDURE: ULTRASOUND GUIDED THORACENTESIS USING TEMPORARY CATHETER HISTORY: 60 Female with sob requiring thoracentesis. DOCUMENTATION: Informed consent was obtained and a procedural time out was performed. TECHNIQUE: Ultrasound was used to locate the left pleural fluid collection with an image archived in the PACS. The skin over the left posterior hemithorax was sterilely prepped, draped, and infiltrated with 1% lidocaine. Under real time ultrasound guidance, the left pleural space was accessed with a 19-gauge Yueh needle and connected to Vacutainers. The Yueh catheter was advanced, the needle was removed and the temporary catheter was advanced and connected to the Vacutainer. Approximately 0.8 liters of straw colored fluid was removed. The temporary catheter was removed and sterile dressings were applied. FINDINGS: Ultrasound demonstrates a moderate left pleural effusion. Imaging confirms the needle tip within the fluid. IMPRESSION: SUCCESSFUL ULTRASOUND GUIDED THORACENTESIS. Procedure by Dr. Hand
--- NOTE | 2025-06-07 20:02 | PROGRESS NOTE ---
Progress Note ID Providers to CC ~ Progress Note Progress Note: wbc up-pt needs abt ct JOS LOREDO MD Jun 07, 2025 20:02
[2025-06-07] MEDS: Permethrin 1% 59ml topical rinse TP ONE (21:01)
[2025-06-07] MEDS ORDERED: albuterol 2.5 MG/3 ML nebule NEB PRN (21:20)
--- NOTE | 2025-06-07 21:23 | PROGRESS NOTE ---
Daily Progress Note Providers to CC ~ Antibiotic Timeout Antibiotic Ordered?: Yes Subjective The patient's no longer has coarse breath sounds she did have a right-sided thoracentesis today and 800 mL were drained and fluid was sent for culture and sensitivity. The patient was found to have lice which is being treated for a 2nd time Objective Vital Signs Date Time Temp Pulse Resp B/P (MAP) Pulse Ox O2 Delivery O2 Flow Rate FiO2 06/07/25 20:00 18 96 Nasal Cannula 3.0 06/07/25 18:30 89 06/07/25 15:00 97.5 91/54 (66) 06/03/25 11:00 40 Result Diagram: 06/07/25 0500 06/07/25 0500 Gen. No acute distress alert and oriented 4 Lungs significant coarse breath sounds in the upper lung wade bilaterally, Heart normal sinus rhythm no murmurs rubs or clicks noted Abdomen soft nontender bowel sounds are normoactive Lower extremities no clubbing cyanosis, nor edema appreciated bilaterally Problem\Assessment\Plan 60 years old female presented to the ER for evaluation of abdominal pain. 1. Gastritis/antral ulcer/colitis/Viscus perforation : Continue IV antibiotics and IV Protonix. Patient underwent an EGD which showed LA grade B reflux esophagitis with no bleeding and ulcer in the stomach with active bleeding. Patient continued to vomit and underwent a CT which showed viscus perforation and patient underwent ex lap/repair. Doing well postoperatively. Treat per surgery recommendations. 2. Probable bacterial colitis: Continue IV antibiotics. On IV zosyn , consider DC after one week 3. Fecal impaction: Bowel care per protocol 4. Hypothyroidism: Continue levothyroxine. 5. Depression/bipolar disorder: Continue trazodone , Abilify and Depakote. 6. Hyponatermia IVF and monitor 7. Lactic acidosis : Resolved 8. CHRISTIAN /CKD ; possibly secondary to Renal Tubular stasis , continue IV monitor daily BMP, has resolved 9. Hypokalemia replace per protocol 10. Acute respiratory failure/ bilateral pleural effusion moderate on the right/ likely acute on chronic COPD Status post therapeutic and diagnostic thoracentesis with 800 cc drained from the right lung fluid was sent for cytology and culture Scheduled DuoNeb/ PRN albuterol nebs/ scheduled b.i.d. budesonide neb 11. Disposition: Patient remains significantly weak and is requiring significant assitance with ambulation. Case management is working on rehab placement 12.Code status full code. Date of Service: Jun 07, 2025 Billing Provider: SARAI BUSTOS DO Common Visit Codes: [id number] INP/OBS CARE(HIGH) SARAI BUSTOS DO Jun 07, 2025 21:23
[2025-06-07] MEDS: diatr meglu/diatrizoate 30ml oral sol.-(3 dose) bottle PO SCH (23:35)
[2025-06-07] MEDS: dextrose 50%-water 50ml dispensing syringe IV PRN (23:36)
[2025-06-08] VITALS (19 sets, daily range): BP systolic 82–105; BP diastolic 42–60; PULSE 81–98; RESP 12–18; TEMP 97.8–98.5; O2SAT 90–97
[2025-06-08 04:51] LABS: MEAN PLATELET VOLUME 8.0 FL (7.4-10.4); RED CELL DISTRIBUTION WIDTH 14.5 % (11.5-14.5)
[2025-06-08 05:04] LABS: CREATININE 0.61 MG/DL (0.40-0.90); TOTAL CARBON DIOXIDE 31.7 MMOL/L (24-32); eCRCL 82 ML/MIN; eGFR > 90 ML/MIN
[2025-06-08 06:52] LABS: LYMPHOCYTES % (MANUAL) 4.0 % (21-51); METAMYLEOCYTES% (MANUAL) 2.0 % (0-0); MONOCYTES % (MANUAL) 2.0 % (2-12); NEUTROPHILS % (MANUAL) 92.0 % (42-75); PLATELET ESTIMATE NORMAL
[2025-06-08] MEDS: oxyCODONE/APAP 5-325mg tablet PO PRN (07:31)
[2025-06-08] MEDS: budesonide 0.5mg/2ml UD nebule IH SCH (08:08)
[2025-06-08] MEDS: ipratropium/albuterol 3ml nebule NEB SCH (08:08)
[2025-06-08] MEDS: normal saline 1000ml 1,000 ML IV ONE (09:49)
[2025-06-08] MEDS ORDERED: iohexol 300mg/ml 100ml inj. ONE (09:56)
[2025-06-08] MEDS: normal saline 500ml IV soln 500 ML IV ONE (12:17)
[2025-06-08] MEDS ORDERED: albumin (human) 25% 100ml IV 100 ML in normal saline 500ml IV soln 400 ML IV ONE (13:20)
[2025-06-08] MEDS: midodrine 5mg tablet PO SCH (13:57)
[2025-06-08] MEDS: albumin (Human) 5% 250ml 250 ML IV SCH (13:59)
[2025-06-08] MEDS: albumin (Human) 5% 250ml 250 ML IV ONE ×2 (15:55→17:31)
[2025-06-08] MEDS: lactose-reduced food (Ensure Enlive) - 237ml bottle PO SCH (18:00)
--- NOTE | 2025-06-08 18:39 | RADIOLOGY REPORT ---
EXAM: CT CT ABDOMEN PELVIS W/ IV ORAL CONTRAST HISTORY: abscess TECHNIQUE: Volumetric multidetector CT images of the abdomen and pelvis were obtained after the administration of intravenous contrast. All CT scans at this facility use dose modulation, iterative reconstruction, and/or weight based dosing when appropriate to reduce radiation dose to as low as reasonably achievable. COMPARISON: CT CT ABDOMEN PELVIS W/ IV ORAL CONTRAST on DOS: 06/02/25 FINDINGS: [LOWER CHEST]: Medium-sized bilateral pleural effusions. Collapse of bilateral lower lobes. [LIVER]: Small area of hypoattenuation along the falciform ligament, which is statistically most likely a small amount of fatty infiltration. [GALLBLADDER AND BILIARY TREE]: Surgically absent. [SPLEEN]: Unremarkable. [PANCREAS]: Unremarkable. [ADRENAL GLANDS]: Unremarkable [KIDNEYS]: No hydronephrosis. No nephroureterolithiasis. Inconspicuous urothelial enhancement of the right renal pelvis. Fairly with clinical exam to exclude ascending urinary tract infection. Correlate for urosepsis. [BLADDER]: Intravesicular air [REPRODUCTIVE ORGANS]: Unremarkable. [BOWEL/MESENTERY]: Slight gastric wall thickening. Correlate for gastritis. Oral contrast extending to the rectum. [ASCITES]: Intraperitoneal free air small volume ascites with abnormal peripherally enhancing fluid collection located within the deep pelvis measuring 3.5 x 7.5 cm [LYMPHADENOPATHY]: No pathologically enlarged lymph nodes by CT size criteria [VASCULATURE]: No aneurysmal dilatation. [ABDOMINAL WALL]: Extensive body wall edema [MUSCULOSKELETAL]: No acute fracture or aggressive focal osseous lesion. Multifocal degenerative change of the visualized spine. mild chronic 10 percent superior endplate height loss of T12 and T9, likely chronic IMPRESSION: 1. Intraperitoneal free air with abnormal peripherally enhancing fluid collection located within the deep pelvis measuring 3.5 x 7.5 cm. 2. Medium-sized bilateral pleural effusions with collapse of bilateral lower lobes. 3. Small volume ascites. 4. Inconspicuous urothelial enhancement of the right renal pelvis. 5. Correlate with clinical exam to exclude ascending urinary tract infection. 6. Correlate for urosepsis.
--- NOTE | 2025-06-08 20:43 | PROGRESS NOTE ---
Daily Progress Note Providers to CC ~ Antibiotic Timeout Antibiotic Ordered?: Yes Subjective The patient became septic this morning and required multiple resuscitative measures including 1/2 L of normal saline, a total of 500 mL of 5% albumin as well as midodrine to keep her blood pressure in acceptable range the patient has a pelvic abscess seen on CT scan I discussed this with the Dr. Jacome surgeon who recommended that the patient be transferred for IR to place a drain. We will work on this tomorrow morning. Objective Vital Signs Date Time Temp Pulse Resp B/P (MAP) Pulse Ox O2 Delivery O2 Flow Rate FiO2 06/08/25 20:11 90 18 Nasal Cannula 3.0 06/08/25 20:02 93 32 06/08/25 18:00 98.2 105/59 (74) Result Diagram: 06/08/2542206/08/25422 Gen. No acute distress alert and oriented 4 Lungs significant coarse breath sounds in the upper lung wade bilaterally, Heart normal sinus rhythm no murmurs rubs or clicks noted Abdomen semi firm significant tenderness bowel sounds are normoactive edema of the left labia Lower extremities no clubbing cyanosis, nor edema appreciated bilaterally Problem\Assessment\Plan 60 years old female presented to the ER for evaluation of abdominal pain. 1. Gastritis/antral ulcer/colitis/Viscus perforation : Continue IV antibiotics and IV Protonix. Patient underwent an EGD which showed LA grade B reflux esophagitis with no bleeding and ulcer in the stomach with active bleeding. Patient continued to vomit and underwent a CT which showed viscus perforation and patient underwent ex lap/repair. Doing well postoperatively. Treat per surgery recommendations. 2. Probable bacterial colitis: Continue IV antibiotics. On IV zosyn , consider DC after one week 3. Fecal impaction: Bowel care per protocol 4. Hypothyroidism: Continue levothyroxine. 5. Depression/bipolar disorder: Continue trazodone , Abilify and Depakote. 6. Hyponatermia IVF and monitor 7. Sepsis- secondary to pelvic abscess 06/08 CT scan of the abdomen and pelvis demonstrated a pelvic abscess that is 3.5 x 7.5 cm deep in the pelvis I discuss this with surgeon Dr. Jacome who recommended the the patient be transferred for IR to place a drain. The patient received 500 cc of 5% albumin, 1.5 L fluid bolus and midodrine today 8. CHRISTIAN /CKD ; possibly secondary to Renal Tubular stasis , continue IV monitor daily BMP, has resolved 9. Hypokalemia replace per protocol 10. Acute respiratory failure/ bilateral pleural effusion moderate on the right/ likely acute on chronic COPD Status post therapeutic and diagnostic thoracentesis with 800 cc drained from the right lung fluid was sent for cytology and culture Scheduled DuoNeb/ PRN albuterol nebs/ scheduled b.i.d. budesonide neb 11. Disposition: Patient will require rehab once medically stable however the patient became a critically ill this morning 06/08/2025 12.Code status full code. 60 minutes of critical care time was spent on patient care on 06/08/2025 Date of Service: Jun 08, 2025 Billing Provider: SARAI BUSTOS DO Common Visit Codes: [id number] CARE 30-74 MIN SARAI BUSTOS DO Jun 08, 2025 20:43
--- NOTE | 2025-06-08 21:10 | PROGRESS NOTE ---
Progress Note ID Providers to CC ~ Progress Note Progress Note: vss with albumin/ct findings consistent with abscess/labs noted a/p 1. abd abscess post repair perf ulcer/will ask ir at [facility] to review films JOS LOREDO MD Jun 08, 2025 21:10
[2025-06-09] VITALS (14 sets, daily range): BP systolic 105–132; BP diastolic 61–79; PULSE 86–103; RESP 14–25; TEMP 97–99.3; O2SAT 90–97
[2025-06-09 03:24] LABS: MEAN PLATELET VOLUME 7.7 FL (7.4-10.4); RED CELL DISTRIBUTION WIDTH 14.9 % (11.5-14.5)
[2025-06-09 03:43] LABS: BANDS% (MANUAL) 9 % (0-10); CREATININE 0.46 MG/DL (0.40-0.90); LYMPHOCYTES % (MANUAL) 2 % (21-51); METAMYLEOCYTES% (MANUAL) 2 % (0-0); MONOCYTES % (MANUAL) 2 % (2-12); NEUTROPHILS % (MANUAL) 85 % (42-75); PLATELET ESTIMATE NORMAL; TOTAL CARBON DIOXIDE 30.3 MMOL/L (24-32); eCRCL 109 ML/MIN; eGFR > 90 ML/MIN
[2025-06-09 13:41] LABS: INR 1.1 INR
--- NOTE | 2025-06-09 22:13 | PROGRESS NOTE ---
Daily Progress Note Providers to CC ~ Antibiotic Timeout Antibiotic Ordered?: Yes Subjective The patient had her hair shave last evening- so far no lice were seen today. The patient's blood pressure has stabilized in his waiting to be transferred for IR for drainage of deep pelvic abscess Objective Vital Signs Date Time Temp Pulse Resp B/P (MAP) Pulse Ox O2 Delivery O2 Flow Rate FiO2 06/09/25 21:16 95 16 Nasal Cannula 2.0 06/09/25 21:09 96 32 06/09/25 15:00 98.2 115/62 (79) Result Diagram: 06/09/25 03106/09/25 031 Gen. No acute distress alert and oriented 4 Lungs significant coarse breath sounds in the upper lung wade bilaterally, Heart normal sinus rhythm no murmurs rubs or clicks noted Abdomen semi firm significant tenderness bowel sounds are normoactive edema of the left labia Lower extremities no clubbing cyanosis, nor edema appreciated bilaterally Coagulation Studies Laboratory Tests Test 06/09/25 13:19 Prothrombin Time 11.1 SECONDS (9.0-12.0) INR International Normalized Ratio 1.1 INR Coagulation Comments Problem\Assessment\Plan 60 years old female presented to the ER for evaluation of abdominal pain. 1. Gastritis/antral ulcer/colitis/Viscus perforation : Continue IV antibiotics and IV Protonix. Patient underwent an EGD which showed LA grade B reflux esophagitis with no bleeding and ulcer in the stomach with active bleeding. Patient continued to vomit and underwent a CT which showed viscus perforation and patient underwent ex lap/repair. Doing well postoperatively. Treat per surgery recommendations. 2. Probable bacterial colitis: Continue IV antibiotics. On IV zosyn , consider DC after one week 3. Fecal impaction: Bowel care per protocol 4. Hypothyroidism: Continue levothyroxine. 5. Depression/bipolar disorder: Continue trazodone , Abilify and Depakote. 6. Hyponatermia IVF and monitor 7. Sepsis- secondary to pelvic abscess 06/08 CT scan of the abdomen and pelvis demonstrated a pelvic abscess that is 3.5 x 7.5 cm deep in the pelvis I discuss this with surgeon Dr. Jacome who recommended the the patient be transferred for IR to place a drain. The patient received 500 cc of 5% albumin, 1.5 L fluid bolus and midodrine today 06/09 blood pressure is improved today awaiting transfer for IR 8. CHRISTIAN /CKD ; possibly secondary to Renal Tubular stasis , continue IV monitor daily BMP, has resolved 9. Hypokalemia replace per protocol 10. Acute respiratory failure/ bilateral pleural effusion moderate on the right/ likely acute on chronic COPD Status post therapeutic and diagnostic thoracentesis with 800 cc drained from the right lung fluid was sent for cytology and culture Scheduled DuoNeb/ PRN albuterol nebs/ scheduled b.i.d. budesonide neb 11. Disposition: Patient will require rehab once medically stable however the patient became a critically ill this morning 06/08/2025 12.Code status full code. 60 minutes of critical care time was spent on patient care on 06/08/2025 Date of Service: Jun 09, 2025 Billing Provider: SARAI BUSTOS DO Common Visit Codes: [id number] INP/OBS CARE(HIGH) SARAI BUSTOS DO Jun 09, 2025 22:13
[2025-06-10] VITALS (12 sets, daily range): BP systolic 118–140; BP diastolic 63–77; PULSE 90–114; RESP 14–20; TEMP 97.6–100.2; O2SAT 90–97
[2025-06-10 04:02] LABS: MEAN PLATELET VOLUME 7.5 FL (7.4-10.4); RED CELL DISTRIBUTION WIDTH 14.7 % (11.5-14.5)
[2025-06-10 04:13] LABS: CREATININE 0.52 MG/DL (0.40-0.90); TOTAL CARBON DIOXIDE 30.7 MMOL/L (24-32); eCRCL 96 ML/MIN; eGFR > 90 ML/MIN
[2025-06-10 04:28] LABS: PLATELET ESTIMATE NORMAL
[2025-06-10 04:29] LABS: BANDS% (MANUAL) 10 % (0-10); LYMPHOCYTES % (MANUAL) 5 % (21-51); MONOCYTES % (MANUAL) 4 % (2-12); MYELOCYTES % (MANUAL) 1 % (0-0); NEUTROPHILS % (MANUAL) 80 % (42-75)
--- NOTE | 2025-06-10 11:20 | DISCHARGE SUMMARY ---
Discharge Summary Providers to CC ~ Discharge Summary Admission Diagnosis: perforated viscus Hospital Course DATE OF ADMISSION: 05/31/2025 DATE OF DISCHARGE: 06/10/2025 Discharge Diagnosis\\Comment: Perforated gastric antral ulcer, deep pelvic abscess, sepsis, CHRISTIAN possibly secondary to renal tubular stasis, acute respiratory failure, hyponatremia, depression bipolar disorder, hypothyroidism, fecal impaction Operations\\Procedures: Exploratory laparotomy with Brett patch repair, left-sided thoracentesis Consultants: Dr. Jarrett Jacome general surgeon, Dr. King Hand grounds and nursery specialist, plastic machine operator Complications: None Condition on DC: Stable Discharge Summary: The patient was admitted by Dr. Tray Aggarwal with the following HPI:" 60 years old female presented to the ER from the [facility] for evaluation of abdominal pain that started this morning. Patient states she had vomited yesterday. Denies having any hematemesis melena or bright red blood per rectum. Denies having any fever. Patient evaluated with a CT scan of the abdomen which showed gastric antrum wall thickening suggestive of gastritis a gastric antral ulceration and wall thickening of the ascending colon with adjacent fat stranding suggestive of colitis. Patient has been admitted for further treatment She denies having any chest pain palpitations orthopnea PND or ankle edema. Patient denies having any focal neurological symptoms. Denies having any urin luis e symptoms as well."Initially a bowel prep was started and up the patient is scheduled to have a colonoscopy however It was discovered that the patient had a perforated gastric ulcer and was taken to the OR by Dr. Jarrett Jacome surgeon for exploratory laparotomy and repair of the pre-pyloric perforated gastric ulcer using a Brett patch. The patient is really requiring oxygen and was discovered the patient had a left-sided pleural effusion and I had a left-sided thoracentesis and 800 cc were drained. The patient became septic on the and her blood pressure became significantly low the patient received 1.5 L bolus of IV fluids and two bottles of 250 cc 5% albumin and also midodrine to keep her blood pressure rep was transferred to PCU the patient had a CT scan of the abdomen and pelvis with oral overnight prep contrast and also IV contrast it was discovered that the patient had a intraperitoneal free air with abnormal peripherally enhancing fluid collection located with deep within the pelvis in his 3.5 x 7.5 cm I promptly called Dr. Jacome who recommended that is the patient be transferred where there was IR for drainage of this abscess. At this juncture and [facility] in [place] has a accepted the patient. The patient is white blood cell count had started up trending on the -[id number] and spiked add on the 00 this slowly downtrending in his [id number] today. Patient currently oxygen saturations 96% on 4 L. The patient also was discovered to have lice and was treated with permethrin followed by oral ivermectin and had her hair shaved. Patient had hyponatremia with a serum sodium that dropped to 125 on the and then normalized and is 141 at this juncture. The patient has a CHRISTIAN possibly secondary to renal tubular stasis on the her creatinine peaked at 2.48 and then downtrended improved and was 0.74 on the and remains in normal range Gen. No acute distress alert and oriented 4 Lungs significant coarse breath sounds in the upper lung wade bilaterally, Heart normal sinus rhythm no murmurs rubs or clicks noted Abdomen semi firm significant tenderness bowel sounds are normoactive edema of the left labia Lower extremities no clubbing cyanosis, nor edema appreciated bilaterally The patient is to be transferred to [facility] and [place] for IR services to drain a pelvic abscess today 06/10/2025 The patient was seen and evaluated on day of discharge. Time spent on discharge 40 minutes *Problems/Diagnosis: (1) Pelvic abscess Total Time Spent on D/C: > 30 Minutes Date of Service: Jun 10, 2025 Billing Provider: SARAI BUSTOS DO Common Visit Codes: [id number] DISCH DAY >30min SARAI BUSTOS DO Jun 10, 2025 11:11
--- NOTE | 2025-06-10 19:08 | PROGRESS NOTE ---
Progress Note ID Providers to CC ~ Progress Note Progress Note: awaiting transfer to [facility] for drain placement JOS LOREDO MD Jun 10, 2025 19:08
--- NOTE | 2025-06-10 19:16 | PROGRESS NOTE ---
DATE: 06/09/2025 DICTATING PHYSICIAN: Jarrett aJcome MD SUBJECTIVE: A 60-year-old female status post repair of a perforated gastric ulcer, who has developed an abdominal abscess, is awaiting transfer for drain placement. The patient is somewhat lethargic. OBJECTIVE: VITAL SIGNS: Unremarkable. ABDOMEN: Nondistended. LABORATORY DATA: WBC of 18, hematocrit of 31, BUN and creatinine of 5 and 0.46. IMPRESSION: Status post repair of perforated gastric ulcer. The patient needs drain placement. May need TPN. Jarrett Jacome MD TID: [id number] RECEIPT: [id number] KB/VAZQUEZ
--- NOTE | 2025-06-10 21:23 | PROGRESS NOTE ---
Daily Progress Note Providers to CC ~ Antibiotic Timeout Antibiotic Ordered?: No Subjective The patient was scheduled to be transferred for IR drainage of pelvic abscess today and there was a bed available however now the bed is no longer available and the patient remains hospitalized at [facility] Objective Vital Signs Date Time Temp Pulse Resp B/P (MAP) Pulse Ox O2 Delivery O2 Flow Rate FiO2 06/10/25 18:30 107 06/10/25 17:54 16 96 Nasal Cannula 3.0 21 06/10/25 02:00 100.2 122/77 (92) Result Diagram: 06/10/25 0340 06/10/25 0340 Gen. No acute distress alert and oriented 4 Lungs significant coarse breath sounds in the upper lung wade bilaterally, Heart normal sinus rhythm no murmurs rubs or clicks noted Abdomen semi firm significant tenderness bowel sounds are normoactive edema of the left labia Lower extremities no clubbing cyanosis, nor edema appreciated bilaterally Coagulation Studies Laboratory Tests Test 06/09/25 13:19 Prothrombin Time 11.1 SECONDS (9.0-12.0) INR International Normalized Ratio 1.1 INR Coagulation Comments Problem\Assessment\Plan Problems/Diagnosis: (1) Pelvic abscess 60 years old female presented to the ER for evaluation of abdominal pain. 1. Gastritis/antral ulcer/colitis/Viscus perforation : Continue IV antibiotics and IV Protonix. Patient underwent an EGD which showed LA grade B reflux esophagitis with no bleeding and ulcer in the stomach with active bleeding. Patient continued to vomit and underwent a CT which showed viscus perforation and patient underwent ex lap/repair. Doing well postoperatively. Treat per surgery recommendations. 2. Probable bacterial colitis: Continue IV antibiotics. On IV zosyn , consider DC after one week 3. Fecal impaction: Bowel care per protocol 4. Hypothyroidism: Continue levothyroxine. 5. Depression/bipolar disorder: Continue trazodone , Abilify and Depakote. 6. Hyponatermia IVF and monitor 7. Sepsis- secondary to pelvic abscess 06/08 CT scan of the abdomen and pelvis demonstrated a pelvic abscess that is 3.5 x 7.5 cm deep in the pelvis I discuss this with surgeon Dr. Jacome who recommended the the patient be transferred for IR to place a drain. The patient received 500 cc of 5% albumin, 1.5 L fluid bolus and midodrine today 9/11 blood pressure is improved today awaiting transfer for IR 06/10 stabilized 8. CHRISTIAN /CKD ; possibly secondary to Renal Tubular stasis , continue IV monitor daily BMP, has resolved 9. Hypokalemia replace per protocol 10. Acute respiratory failure/ bilateral pleural effusion moderate on the right/ likely acute on chronic COPD Status post therapeutic and diagnostic thoracentesis with 800 cc drained from the right lung fluid was sent for cytology and culture Scheduled DuoNeb/ PRN albuterol nebs/ scheduled b.i.d. budesonide neb 11. Disposition: Awaiting transfer to a tertiary center with IR for drainage placement 12.Code status full code. 60 minutes of critical care time was spent on patient care on 06/08/2025 Date of Service: Jun 10, 2025 Billing Provider: SARAI BUSTOS DO Common Visit Codes: [id number] INP/OBS CARE(HIGH) SARAI BUSTOS DO Jun 10, 2025 21:23
[2025-06-11] VITALS (12 sets, daily range): BP systolic 114–142; BP diastolic 60–82; PULSE 75–105; RESP 14–24; TEMP 97–98.3; O2SAT 94–98
--- NOTE | 2025-06-11 22:14 | PROGRESS NOTE ---
Daily Progress Note Providers to CC ~ Antibiotic Timeout Antibiotic Ordered?: Yes Subjective The patient was not in pain in his requesting increase in her pain medication the patient was not on any IV pain medication I have added IV Dilaudid. As of today [facility] does not have a bed. Objective Vital Signs Date Time Temp Pulse Resp B/P (MAP) Pulse Ox O2 Delivery O2 Flow Rate FiO2 06/11/25 20:13 85 22 Nasal Cannula 3.0 06/11/25 20:06 96 32 06/11/25 13:25 98.3 142/82 (102) Result Diagram: 06/10/25 0340 06/10/25 0340 Gen. No acute distress alert and oriented 4 Lungs significant coarse breath sounds in the upper lung wade bilaterally, Heart normal sinus rhythm no murmurs rubs or clicks noted Abdomen semi firm significant tenderness bowel sounds are normoactive edema of the left labia Lower extremities no clubbing cyanosis, nor edema appreciated bilaterally Coagulation Studies Laboratory Tests Test 06/09/25 13:19 Prothrombin Time 11.1 SECONDS (9.0-12.0) INR International Normalized Ratio 1.1 INR Coagulation Comments Problem\Assessment\Plan Problems/Diagnosis: (1) Pelvic abscess 60 years old female presented to the ER for evaluation of abdominal pain. 1. Gastritis/antral ulcer/colitis/Viscus perforation : Continue IV antibiotics and IV Protonix. Patient underwent an EGD which showed LA grade B reflux esophagitis with no bleeding and ulcer in the stomach with active bleeding. Patient continued to vomit and underwent a CT which showed viscus perforation and patient underwent ex lap/repair. Doing well postoperatively. Treat per surgery recommendations. 2. Probable bacterial colitis: Continue IV antibiotics. On IV zosyn , 3. Fecal impaction: Bowel care per protocol 4. Hypothyroidism: Continue levothyroxine. 5. Depression/bipolar disorder: Continue trazodone , Abilify and Depakote. 6. Hyponatermia IVF and monitor 7. Sepsis- secondary to pelvic abscess 06/08 CT scan of the abdomen and pelvis demonstrated a pelvic abscess that is 3.5 x 7.5 cm deep in the pelvis I discuss this with surgeon Dr. Jacome who recommended the the patient be transferred for IR to place a drain. The patient received 500 cc of 5% albumin, 1.5 L fluid bolus and midodrine today 06/09 blood pressure is improved today awaiting transfer for IR 06/10 stabilized 06/11 awaiting transfer to tertiary center for IR to drain abscess. 8. CHRISTIAN /CKD ; possibly secondary to Renal Tubular stasis , continue IV monitor daily BMP, has resolved 9. Hypokalemia replace per protocol 10. Acute respiratory failure/ bilateral pleural effusion moderate on the right/ likely acute on chronic COPD Status post therapeutic and diagnostic thoracentesis with 800 cc drained from the right lung fluid was sent for cytology and culture Scheduled DuoNeb/ PRN albuterol nebs/ scheduled b.i.d. budesonide neb 11. Disposition: Awaiting transfer to a tertiary center with IR for drainage placement 12.Code status full code. 60 minutes of critical care time was spent on patient care on 06/08/2025 Date of Service: Jun 11, 2025 Billing Provider: SARAI BUSTOS DO Common Visit Codes: [id number] INP/OBS CARE(HIGH) SARAI BUSTOS DO Jun 11, 2025 22:14
[2025-06-12] VITALS (13 sets, daily range): BP systolic 126–140; BP diastolic 64–87; PULSE 70–91; RESP 14–24; TEMP 97.8–98.4; O2SAT 94–98
[2025-06-12 09:47] LABS: MEAN PLATELET VOLUME 7.0 FL (7.4-10.4); RED CELL DISTRIBUTION WIDTH 15.0 % (11.5-14.5)
[2025-06-12 09:59] LABS: CREATININE 0.46 MG/DL (0.40-0.90); TOTAL CARBON DIOXIDE 33.7 MMOL/L (24-32); eCRCL 109 ML/MIN; eGFR > 90 ML/MIN
[2025-06-12] MEDS: midodrine 5mg tablet PO SCH (16:15)
--- NOTE | 2025-06-12 21:30 | PROGRESS NOTE ---
Daily Progress Note Providers to CC ~ Antibiotic Timeout Antibiotic Ordered?: Yes Subjective The patient pain in his controlled awaiting to be transferred for IR to drain the pelvic abscess in the meantime her white blood cell count has normalized Objective Vital Signs Date Time Temp Pulse Resp B/P (MAP) Pulse Ox O2 Delivery O2 Flow Rate FiO2 06/12/25 20:16 91 21 Nasal Cannula 2.0 06/12/25 20:05 96 32 06/12/25 14:00 97.8 140/76 (97) Result Diagram: 06/12/25 0933 06/12/25 0933 Gen. No acute distress alert and oriented 4 Lungs significant coarse breath sounds in the upper lung wade bilaterally, Heart normal sinus rhythm no murmurs rubs or clicks noted Abdomen semi firm significant tenderness bowel sounds are normoactive edema of the left labia Lower extremities no clubbing cyanosis, nor edema appreciated bilaterally Coagulation Studies Laboratory Tests Test 06/09/25 13:19 Prothrombin Time 11.1 SECONDS (9.0-12.0) INR International Normalized Ratio 1.1 INR Coagulation Comments Problem\Assessment\Plan Problems/Diagnosis: (1) Pelvic abscess 60 years old female presented to the ER for evaluation of abdominal pain. 1. Gastritis/antral ulcer/colitis/Viscus perforation : Continue IV antibiotics and IV Protonix. Patient underwent an EGD which showed LA grade B reflux esophagitis with no bleeding and ulcer in the stomach with active bleeding. Patient continued to vomit and underwent a CT which showed viscus perforation and patient underwent ex lap/repair. Doing well postoperatively. Treat per surgery recommendations. 2. Probable bacterial colitis: Continue IV antibiotics. On IV zosyn , 3. Fecal impaction: Bowel care per protocol- resolved 4. Hypothyroidism: Continue levothyroxine. 5. Depression/bipolar disorder: Continue trazodone , Abilify and Depakote. 6. Hyponatermia IVF and monitor 7. Sepsis- secondary to pelvic abscess 06/08 CT scan of the abdomen and pelvis demonstrated a pelvic abscess that is 3.5 x 7.5 cm deep in the pelvis I discuss this with surgeon Dr. Jacome who recommended the the patient be transferred for IR to place a drain. The patient received 500 cc of 5% albumin, 1.5 L fluid bolus and midodrine today 06/09 blood pressure is improved today awaiting transfer for IR 06/10 stabilized 06/11 awaiting transfer to us tertiary center for IR to drain abscess. 8. CHRISTIAN /CKD ; possibly secondary to Renal Tubular stasis , continue IV monitor daily BMP, has resolved 9. Hypokalemia replace per protocol 10. Acute respiratory failure/ bilateral pleural effusion moderate on the right/ likely acute on chronic COPD Status post therapeutic and diagnostic thoracentesis with 800 cc drained from the right lung fluid was sent for cytology and culture Scheduled DuoNeb/ PRN albuterol nebs/ scheduled b.i.d. budesonide neb 11. Disposition: Awaiting transfer to a tertiary center with IR for drainage placement 12.Code status full code. 60 minutes of critical care time was spent on patient care on 06/08/2025 Date of Service: Jun 12, 2025 Billing Provider: SARAI BUSTOS DO Common Visit Codes: [id number] INP/OBS CARE(HIGH) SARAI BUSTOS DO Jun 12, 2025 21:30
[2025-06-13] VITALS (11 sets, daily range): BP systolic 110–148; BP diastolic 65–87; PULSE 81–90; RESP 14–26; TEMP 97.8–98.6; O2SAT 95–98
[2025-06-13 10:21] LABS: MEAN PLATELET VOLUME 6.9 FL (7.4-10.4); RED CELL DISTRIBUTION WIDTH 14.8 % (11.5-14.5)
[2025-06-13 10:36] LABS: CREATININE 0.42 MG/DL (0.40-0.90); TOTAL CARBON DIOXIDE 32.3 MMOL/L (24-32); eCRCL 119 ML/MIN; eGFR > 90 ML/MIN
--- NOTE | 2025-06-13 20:57 | PROGRESS NOTE ---
Daily Progress Note Providers to CC ~ Antibiotic Timeout Antibiotic Ordered?: Yes Subjective The patient had no acute complaints or concerns other than asking me to open her pudding for her. Anticipate the patient be transferred to [facility] in the am. Objective Vital Signs Date Time Temp Pulse Resp B/P (MAP) Pulse Ox O2 Delivery O2 Flow Rate FiO2 06/13/25 18:30 72 06/13/25 15:52 18 Nasal Cannula 2.0 06/13/25 15:45 98 32 06/13/25 15:00 98.1 122/71 (88) Result Diagram: 06/13/25 1002 06/13/25 1002 Gen. No acute distress alert and oriented 4 Lungs significant coarse breath sounds in the upper lung wade bilaterally, Heart normal sinus rhythm no murmurs rubs or clicks noted Abdomen soft [id number] generalized tenderness bowel sounds are normoactive edema of the left labia Lower extremities no clubbing cyanosis, nor edema appreciated bilaterally Coagulation Studies Laboratory Tests Test 06/09/25 13:19 Prothrombin Time 11.1 SECONDS (9.0-12.0) INR International Normalized Ratio 1.1 INR Coagulation Comments Problem\Assessment\Plan Problems/Diagnosis: (1) Pelvic abscess 60 years old female presented to the ER for evaluation of abdominal pain. Had a EGD and was discovered to have a perforated pyloric channel gastric ulcer and went for a Brett patch repair with Dr. Jacome surgeon on 06/03/2025. A repeat CT scan of the abdomen and pelvis with IV and overnight oral contrast prep was ordered by surgeon on the and it was discovered the patient has a 3.5 x 7.5 cm deep pelvic abscess for which Dr. Jacome recommended transferring the patient for interventional radiology draining the abscess. The patient develop sepsis and was significantly hypotensive on the however has since stabilized in his ready for transfer The patient has been accepted to [facility] anticipate a bed will be available 06/14/[address] Carson and hospitalist Dr. Wheeler have accepted the patient once the patient received a cleared from lice isolation. 1. Gastritis/antral ulcer/colitis/Viscus perforation : Continue IV antibiotics and IV Protonix. Patient underwent an EGD which showed LA grade B reflux esophagitis with no bleeding and ulcer in the stomach with active bleeding. Patient continued to vomit and underwent a CT which showed viscus perforation and patient underwent ex lap/repair. Doing well postoperatively. Treat per surgery recommendations. 2. Probable bacterial colitis: Continue IV antibiotics. On IV zosyn , 3. Fecal impaction: Bowel care per protocol- resolved 4. Hypothyroidism: Continue levothyroxine. 5. Depression/bipolar disorder: Continue trazodone , Abilify and Depakote. 6. Hyponatermia IVF and monitor 7. Sepsis- secondary to pelvic abscess 06/08 CT scan of the abdomen and pelvis demonstrated a pelvic abscess that is 3.5 x 7.5 cm deep in the pelvis I discuss this with surgeon Dr. Jacome who recommended the the patient be transferred for IR to place a drain. The patient received 500 cc of 5% albumin, 1.5 L fluid bolus and midodrine today 06/09 blood pressure is improved today awaiting transfer for IR 06/10 stabilized 06/11 awaiting transfer to [facility] for IR to drain abscess. 8. CHRISTIAN /CKD ; possibly secondary to Renal Tubular stasis , continue IV monitor daily BMP, has resolved 9. Hypokalemia replace per protocol 10. Acute respiratory failure/ bilateral pleural effusion moderate on the right/ likely acute on chronic COPD Status post therapeutic and diagnostic thoracentesis with 800 cc drained from the right lung fluid was sent for cytology and culture Scheduled DuoNeb/ PRN albuterol nebs/ scheduled b.i.d. budesonide neb 11. Disposition: Awaiting transfer to a tertiary center with IR for drainage placement 12.Code status full code. Disposition: Transferre to [facility] interventional radiology drainage 60 minutes of critical care time was spent on patient care on 06/08/2025 Date of Service: Jun 13, 2025 Billing Provider: SARAI BUSTOS DO Common Visit Codes: [id number] INP/OBS CARE(HIGH) SARAI BUSTOS DO Jun 13, 2025 20:57
[2025-06-13] MEDS: Permethrin 1% 59ml topical rinse TP ONE (21:53)
[2025-06-14] VITALS (12 sets, daily range): BP systolic 106–138; BP diastolic 66–76; PULSE 75–86; RESP 13–22; TEMP 97.6–98.7; O2SAT 94–98
[2025-06-14 03:25] LABS: MEAN PLATELET VOLUME 6.7 FL (7.4-10.4); RED CELL DISTRIBUTION WIDTH 14.7 % (11.5-14.5)
[2025-06-14 03:40] LABS: CREATININE 0.58 MG/DL (0.40-0.90); TOTAL CARBON DIOXIDE 35.8 MMOL/L (24-32); eCRCL 86 ML/MIN; eGFR > 90 ML/MIN
--- NOTE | 2025-06-14 10:09 | DISCHARGE SUMMARY ---
Discharge Summary Providers to CC ~ Discharge Summary Admission Diagnosis: perforated viscus Hospital Course DATE OF ADMISSION: 05/31/25 DATE OF DISCHARGE: 06/14/25 Discharge Diagnosis\\Comment: Gastritis/antral ulcer/colitis/Viscus perforation Probable bacterial colitis Fecal impaction Hypothyroidism Depression/bipolar disorder Hyponatermia Sepsis- secondary to pelvic abscess Prerenal CHRISTIAN 2/2 vasomotor nephropathy/sepsis Hypokalemia Acute respiratory failure/ bilateral pleural effusion moderate on the right Acute COPD exacerbation Operations\\Procedures: EGD Exploratory laparotomy Repair of prepyloric perforated gastric ulcer using Brett patch Thoracentesis Consultants: Surgeon Jarrett Morton GI Parisa Callahan Complications: None Condition on DC: Stable for transfer Discharge Summary: History of Present Illness From H&P: "60 years old female presented to the ER from the [facility] for evaluation of abdominal pain that started this morning. Patient states she had vomited yesterday. Denies having any hematemesis melena or bright red blood per rectum. Denies having any fever. Patient evaluated with a CT scan of the abdomen which showed gastric antrum wall thickening suggestive of gastritis a gastric antral ulceration and wall thickening of the ascending colon with adjacent fat stranding suggestive of colitis. She denies having any chest pain palpitations orthopnea PND or ankle edema. Patient denies having any focal neurological symptoms. Denies having any urinary symptoms as well. Patient has been admitted for further treatment." Hospital Course Diagnostic findings were notable for findings of sepsis and CT revealing findings suggestive of gastritis and gastric antral ulceration, low to moderate volume free fluid in the pelvis, and colitis. EGD with finding was notable for perforated pyloric channel gastric ulcer, LA grade B reflux esophagitis without bleeding and ulcer in the stomach with active bleeding. Patient continued to have emesis hence repeat CT was done which showed development of large volume ascites with pneumoperitoneum, suspected perforated viscus. Case was consulted with surgeon Dr. Jacome and patient underwent exploratory laparotomy with repair of pre-pyloric perforated gastric ulcer using Brett patch. Patient developed pleural effusion and underwent thoracentesis without complication. Patient was treated with empirical antibiotics and PPI. A subsequent CT revealed pelvic abscess measuring 3.5x7.5cm. Patient is to be transferred for IR intervention for abscess drainage as our facility has no IR service available at this time. Lice was treated with permethrin. Patient was seen and examined on the day of discharge. On day of discharge, vss and las unremarkable. All labs, diagnostic workups, discharge plan discussed with patient in details during visit before discharge. All questions and concerns answered to the best of my professional knowledge. Patient is clinically and hemodynamically stable. Patient is to be transferred to [facility] for IR intervention. Physical Exam General: Generalized weakness, Awake, Alert, Oriented x2, NAD HEENT: Normocephalic, PERRLA Neck: Supple, trachea midline, no JVD Chest: Clear to auscultation bilaterally Cardiovascular: RRR, S1&S2 GI: Tenderness with palpation all quadrants, negative rebound tenderness Extremities: No cyanosis/clubbing/or edema HANDBAG STITCHER: CN II-XII intact, no focal deficits Musculoskeletal: No paraspinal muscle tenderness, no muscle spasm Skin: Medial abdomen incision closed *Problems/Diagnosis: (1) Pelvic abscess Status: Acute Total Time Spent on D/C: > 30 Minutes EDGAR GILL Jun 14, 2025 10:09
[2025-06-14] MEDS: DEXTROSE 15 GM of carb/4 tabs (each vial/BOTTLE has 4 tablets) PO PRN (10:26)
--- NOTE | 2025-06-14 17:27 | PROGRESS NOTE ---
Daily Progress Note Providers to CC ~ Antibiotic Timeout Antibiotic Ordered?: Yes Subjective No acute events overnight. Patient examined at bedside. No new complaints, not in acute distress. Patient denies chest pain, sob, palpitations, abdominal pain, n/v/d. Vss, labs unremarkable. Pelvic abscess, pending transfer for IR intervention. Objective Vital Signs Date Time Temp Pulse Resp B/P (MAP) Pulse Ox O2 Delivery O2 Flow Rate FiO2 06/14/25 15:17 81 20 Nasal Cannula 2.0 06/14/25 15:09 97 28 06/14/25 10:00 98.7 138/70 (92) Result Diagram: 06/14/25 0300 06/14/25 0300 Physical Exam General: Generalized weakness, Awake, Alert, Oriented x2, NAD HEENT: Normocephalic, PERRLA Neck: Supple, trachea midline, no JVD Chest: Clear to auscultation bilaterally Cardiovascular: RRR, S1&S2 GI: Tenderness with palpation all quadrants, negative rebound tenderness Extremities: No cyanosis/clubbing/or edema EYE SURGEON: CN II-XII intact, no focal deficits Musculoskeletal: No paraspinal muscle tenderness, no muscle spasm Skin: Medial abdomen incision closed Coagulation Studies Laboratory Tests Test 06/09/25 13:19 Prothrombin Time 11.1 SECONDS (9.0-12.0) INR International Normalized Ratio 1.1 INR Coagulation Comments Problem\Assessment\Plan Problems/Diagnosis: (1) Pelvic abscess 60 years old female presented to the ER for evaluation of abdominal pain. Had a EGD and was discovered to have a perforated pyloric channel gastric ulcer and went for a Brett patch repair with Dr. Jacome surgeon on 06/03/2025. A repeat CT scan of the abdomen and pelvis with IV and overnight oral contrast prep was ordered by surgeon on the and it was discovered the patient has a 3.5 x 7.5 cm deep pelvic abscess for which Dr. Jacome recommended transferring the patient for interventional radiology draining the abscess. The patient develop sepsis and was significantly hypotensive on the however has since stabilized in his ready for transfer The patient has been accepted to [facility] anticipate a bed will be available 06/14/[address] Carson and hospitalist Dr. Wheeler have accepted the patient once the patient received a cleared from lice isolation. Assessment & Plan Gastritis/antral ulcer/colitis/Viscus perforation Probable bacterial colitis Fecal impaction Hypothyroidism Depression/bipolar disorder Hyponatermia Sepsis- secondary to pelvic abscess Prerenal CHRISTIAN 2/2 vasomotor nephropathy/sepsis Hypokalemia Acute respiratory failure/ bilateral pleural effusion moderate on the right Acute COPD exacerbation 06/14: pending transfer for IR intervention Date of Service: Jun 14, 2025 Billing Provider: EDGAR GILL Common Visit Codes: [id number] INP/OBS CARE(HIGH) EDGAR GILL Jun 14, 2025 17:27
[2025-06-15] VITALS (18 sets, daily range): BP systolic 111–140; BP diastolic 65–81; PULSE 68–86; RESP 14–22; TEMP 97.4–98.3; O2SAT 90–99
[2025-06-15 05:04] LABS: MEAN PLATELET VOLUME 6.9 FL (7.4-10.4); RED CELL DISTRIBUTION WIDTH 14.7 % (11.5-14.5)
[2025-06-15 05:19] LABS: CREATININE 0.58 MG/DL (0.40-0.90); TOTAL CARBON DIOXIDE 35.2 MMOL/L (24-32); eCRCL 86 ML/MIN; eGFR > 90 ML/MIN
--- NOTE | 2025-06-15 11:45 | PROGRESS NOTE ---
Daily Progress Note Providers to CC ~ Antibiotic Timeout Antibiotic Ordered?: Yes Subjective No acute events overnight. Patient examined at bedside. No new complaints, not in acute distress. Patient denies chest pain, sob, palpitations, abdominal pain, n/v/d. Vss, labs unremarkable. Pelvic abscess, IR available today, s/p CT guided deep pelvis abscess aspiration. Objective Vital Signs Date Time Temp Pulse Resp B/P (MAP) Pulse Ox O2 Delivery O2 Flow Rate FiO2 06/15/25 10:00 98.3 76 22 113/67 (82) 95 Room Air 06/15/25 08:00 2.0 06/15/25 07:25 28 Result Diagram: 06/15/2543806/15/[id number] Physical Exam General: Generalized weakness, Awake, Alert, Oriented x2, NAD HEENT: Normocephalic, PERRLA Neck: Supple, trachea midline, no JVD Chest: Clear to auscultation bilaterally Cardiovascular: RRR, S1&S2 GI: Tenderness with palpation all quadrants, negative rebound tenderness Extremities: No cyanosis/clubbing/or edema POWERSAW SUPERVISOR: CN II-XII intact, no focal deficits Musculoskeletal: No paraspinal muscle tenderness, no muscle spasm Skin: Medial abdomen incision closed Coagulation Studies Laboratory Tests Test 06/09/25 13:19 Prothrombin Time 11.1 SECONDS (9.0-12.0) INR International Normalized Ratio 1.1 INR Coagulation Comments Problem\Assessment\Plan Problems/Diagnosis: (1) Pelvic abscess 60 years old female presented to the ER for evaluation of abdominal pain. Had a EGD and was discovered to have a perforated pyloric channel gastric ulcer and went for a Brett patch repair with Dr. Jacome surgeon on 06/03/2025. A repeat CT scan of the abdomen and pelvis with IV and overnight oral contrast prep was ordered by surgeon on the and it was discovered the patient has a 3.5 x 7.5 cm deep pelvic abscess for which Dr. Jacome recommended transferring the patient for interventional radiology draining the abscess. The patient develop sepsis and was significantly hypotensive on the however has since stabilized in his ready for transfer The patient has been accepted to [facility] anticipate a bed will be available 06/14/[address] Carson and hospitalist Dr. Wheeler have accepted the patient once the patient received a cleared from lice isolation. Assessment & Plan Gastritis/antral ulcer/colitis/Viscus perforation Probable bacterial colitis Fecal impaction Hypothyroidism Depression/bipolar disorder Hyponatermia Sepsis- secondary to pelvic abscess Prerenal CHRISTIAN 2/2 vasomotor nephropathy/sepsis Hypokalemia Acute respiratory failure/ bilateral pleural effusion moderate on the right Acute COPD exacerbation 06/14: pending transfer for IR intervention 06/15: IR available at this facility, s/p CT guided deep pelvis abscess aspiration DVT/VTE Prophylaxis: SCDs Code Status: Full Code Date of Service: Jun 15, 2025 Billing Provider: EDGAR GILL Common Visit Codes: [id number] INP/OBS CARE(HIGH) EDGAR GILL Jun 15, 2025 11:45
[2025-06-15] MEDS ORDERED: fentaNYL/PF 50MCG/1 ML 2ML syringe ONE (13:34)
[2025-06-15] MEDS ORDERED: midazolam 1 mg/ML 2ml injection ONE (13:34)
--- NOTE | 2025-06-15 15:32 | PROGRESS NOTE ---
Progress Note - Angio Providers to CC ~ Angio Progress Note: Risks benefits alt of deep pelvis abscess aspiration, lavage, drainage d/w pts son via phone and RN witness. Informed consent disclosed. Will limit sedation to fentanyl and lidocaine only. Mal 2. ASA 2. JERRY PANIAGUA MD Jun 15, 2025 15:32
--- NOTE | 2025-06-15 15:33 | PROGRESS NOTE ---
Progress Note - Angio Providers to CC ~ Angio Progress Note: S/P CT guided deep pelvis abscess aspiration, this yielded about 2cc serosang fluid, no christopher pus at this time. Scant debris, sent for C and S, cavity too small (improved from prior CT) for pigtail placement. No imed complications. EBL less than 3cc. Dictated. JERRY PANIAGUA MD Jun 15, 2025 15:33
--- NOTE | 2025-06-15 15:59 | RADIOLOGY REPORT ---
Procedure: CT-guided deep pelvic fluid drainage History: Deep pelvic fluid collection suspicious for abscess Medications: 4 1% lidocaine, 25 mcg Fentanyl IV. DLP: 1735.16 mGycm ESTIMATED BLOOD LOSS: Less than 3 ml Technique: Patient was placed in the scanner in a prone position. Scans of the pelvis were obtained. The skin was marked. It was prepped and draped in a sterile fashion. Local anesthesia was applied. A 5 Romanian catheter was placed in the fluid collection via a left posterior lateral oblique approach. Approximately 2 cc of serosanguineous fluid was removed with minimal debris. There was no evidence of christopher pus. The cavity size appeared smaller than that seen on prior CT abdomen examination consistent with improvement. Post aspiration scanning of the pelvis demonstrated no evidence of extravasation or hematoma. A sample was sent to the lab. Findings: Small deep pelvic fluid collection appears to has improved since prior examination. Final images show the catheter in the fluid collection. Images after aspiration demonstrated no evidence of hematoma or extravasation. Impression: CT-guided drainage deep pelvis fluid collection. No evidence of christopher pus although sample of serous fluid sent to laboratory for analysis. The fluid collection is improved from prior examination and too small to place a pigtail drainage catheter at this time. There is clinical improvement as well with decreasing white blood count also documented.
[2025-06-15] MEDS: JUVEN Shake w/Arg/Glut/Ca2+Bmb (Juven 19.3gm) pkt 240ml PO SCH (17:30)
[2025-06-16] VITALS (14 sets, daily range): BP systolic 103–123; BP diastolic 60–79; PULSE 64–104; RESP 12–18; TEMP 97.1–98.7; O2SAT 91–100
[2025-06-16 04:59] LABS: MEAN PLATELET VOLUME 6.8 FL (7.4-10.4); RED CELL DISTRIBUTION WIDTH 14.9 % (11.5-14.5)
[2025-06-16 05:21] LABS: CREATININE 0.48 MG/DL (0.40-0.90); TOTAL CARBON DIOXIDE 32.6 MMOL/L (24-32); eCRCL 104 ML/MIN; eGFR > 90 ML/MIN
--- NOTE | 2025-06-16 11:37 | PROGRESS NOTE ---
Daily Progress Note Providers to CC ~ Antibiotic Timeout Antibiotic Ordered?: Yes Subjective No acute events overnight. Patient examined at bedside. No new complaints, not in acute distress. Patient denies chest pain, sob, palpitations, abdominal pain, n/v/d. Vss, labs unremarkable. Pelvic abscess, s/p CT guided deep pelvis abscess aspiration with 2cc of serosanguinous fluid removed on 06/15/25. No drainage tube indicated as size small. Abscess culture pending. Pending rehab, continue PT. Objective Vital Signs Date Time Temp Pulse Resp B/P (MAP) Pulse Ox O2 Delivery O2 Flow Rate FiO2 06/16/25 10:05 98.2 74 16 103/60 (74) 97 Nasal Cannula 3.0 06/16/25 07:36 28 Result Diagram: 06/16/[id number]/16/[id number] Physical Exam General: Generalized weakness, Awake, Alert, Oriented x2, NAD HEENT: Normocephalic, PERRLA Neck: Supple, trachea midline, no JVD Chest: Clear to auscultation bilaterally Cardiovascular: RRR, S1&S2 GI: Tenderness with palpation all quadrants, negative rebound tenderness Extremities: No cyanosis/clubbing/or edema LATEX CASTER: CN II-XII intact, no focal deficits Musculoskeletal: No paraspinal muscle tenderness, no muscle spasm Skin: Medial abdomen incision closed Coagulation Studies Laboratory Tests Test 06/09/25 13:19 Prothrombin Time 11.1 SECONDS (9.0-12.0) INR International Normalized Ratio 1.1 INR Coagulation Comments Problem\Assessment\Plan Problems/Diagnosis: (1) Pelvic abscess 60 years old female presented to the ER for evaluation of abdominal pain. Had a EGD and was discovered to have a perforated pyloric channel gastric ulcer and went for a Brett patch repair with Dr. Jacome surgeon on 06/03/2025. A repeat CT scan of the abdomen and pelvis with IV and overnight oral contrast prep was ordered by surgeon on the and it was discovered the patient has a 3.5 x 7.5 cm deep pelvic abscess for which Dr. Jacome recommended transferring the patient for interventional radiology draining the abscess. The patient develop sepsis and was significantly hypotensive on the however has since stabilized in his ready for transfer The patient has been accepted to [facility] anticipate a bed will be available 06/14/[address] Carson and hospitalist Dr. Wheeler have accepted the patient once the patient received a cleared from lice isolation. Assessment & Plan Gastritis/antral ulcer/colitis/Viscus perforation Probable bacterial colitis Fecal impaction Hypothyroidism Depression/bipolar disorder Hyponatermia Sepsis- secondary to pelvic abscess Prerenal CHRISTIAN 2/2 vasomotor nephropathy/sepsis Hypokalemia Acute respiratory failure/ bilateral pleural effusion moderate on the right Acute COPD exacerbation 06/14: pending transfer for IR intervention 06/15: IR available at this facility, s/p CT guided deep pelvis abscess aspiration 06/16: pending rehab, continue PT DVT/VTE Prophylaxis: SCDs Code Status: Full Code Date of Service: Jun 16, 2025 Billing Provider: EDGAR GILL Common Visit Codes: [id number] INP/OBS CARE(HIGH) EDGAR GILL Jun 16, 2025 11:37
[2025-06-17] VITALS (10 sets, daily range): BP systolic 111–125; BP diastolic 63–71; PULSE 72–81; RESP 13–18; TEMP 97.9–98.6; O2SAT 95–99
[2025-06-17 05:37] LABS: MEAN PLATELET VOLUME 6.8 FL (7.4-10.4); RED CELL DISTRIBUTION WIDTH 14.6 % (11.5-14.5)
[2025-06-17 05:46] LABS: CREATININE 0.51 MG/DL (0.40-0.90); TOTAL CARBON DIOXIDE 31.8 MMOL/L (24-32); eCRCL 98 ML/MIN; eGFR > 90 ML/MIN
--- NOTE | 2025-06-17 14:15 | PROGRESS NOTE ---
Daily Progress Note Providers to CC ~ Antibiotic Timeout Antibiotic Ordered?: Yes Subjective No acute events overnight. Patient examined at bedside. No new complaints, not in acute distress. Patient denies chest pain, sob, palpitations, abdominal pain, n/v/d. Vss, labs unremarkable. Pelvic abscess, s/p CT guided deep pelvis abscess aspiration with 2cc of serosanguinous fluid removed on 06/15/25. No drainage tube indicated as size small. Abscess culture pending. Pending rehab, continue PT. Objective Vital Signs Date Time Temp Pulse Resp B/P (MAP) Pulse Ox O2 Delivery O2 Flow Rate FiO2 06/17/25 13:00 14 06/17/25 08:52 78 Nasal Cannula 2.0 06/17/25 08:45 97 28 06/17/25 05:00 98.0 113/63 (80) Result Diagram: 06/17/2545206/17/25452 Physical Exam General: Generalized weakness, Awake, Alert, Oriented x2, NAD HEENT: Normocephalic, PERRLA Neck: Supple, trachea midline, no JVD Chest: Clear to auscultation bilaterally Cardiovascular: RRR, S1&S2 GI: Tenderness with palpation all quadrants, negative rebound tenderness Extremities: No cyanosis/clubbing/or edema BAKING POWDER MIXER: CN II-XII intact, no focal deficits Musculoskeletal: No paraspinal muscle tenderness, no muscle spasm Skin: Medial abdomen incision stapled, no s/s of infection Coagulation Studies Laboratory Tests Test 06/09/25 13:19 Prothrombin Time 11.1 SECONDS (9.0-12.0) INR International Normalized Ratio 1.1 INR Coagulation Comments Problem\Assessment\Plan Problems/Diagnosis: (1) Pelvic abscess 60 years old female presented to the ER for evaluation of abdominal pain. Had a EGD and was discovered to have a perforated pyloric channel gastric ulcer and went for a Brett patch repair with Dr. Jacome surgeon on 06/03/2025. A repeat CT scan of the abdomen and pelvis with IV and overnight oral contrast prep was ordered by surgeon on the and it was discovered the patient has a 3.5 x 7.5 cm deep pelvic abscess for which Dr. Jacome recommended transferring the patient for interventional radiology draining the abscess. The patient develop sepsis and was significantly hypotensive on the however has since stabilized in his ready for transfer The patient has been accepted to [facility] anticipate a bed will be available 06/14/[address] Carson and hospitalist Dr. Wheeler have accepted the patient once the patient received a cleared from lice isolation. Assessment & Plan Gastritis/antral ulcer/colitis/Viscus perforation Probable bacterial colitis Fecal impaction Hypothyroidism Depression/bipolar disorder Hyponatermia Sepsis- secondary to pelvic abscess Prerenal CHRISTIAN 2/2 vasomotor nephropathy/sepsis Hypokalemia Acute respiratory failure/ bilateral pleural effusion moderate on the right Acute COPD exacerbation 06/14: pending transfer for IR intervention 06/15: IR available at this facility, s/p CT guided deep pelvis abscess aspiration 06/16: pending rehab, continue PT DVT/VTE Prophylaxis: SCDs Code Status: Full Code Date of Service: Jun 17, 2025 Billing Provider: EDGAR GILL Common Visit Codes: [id number] INP/OBS CARE(MOD) EDGAR GILL Jun 17, 2025 14:14
[2025-06-18] VITALS (11 sets, daily range): BP systolic 111–131; BP diastolic 59–71; PULSE 71–79; RESP 14–18; TEMP 97.2–98.6; O2SAT 95–99
[2025-06-18 05:52] LABS: MEAN PLATELET VOLUME 6.6 FL (7.4-10.4); RED CELL DISTRIBUTION WIDTH 15.0 % (11.5-14.5)
[2025-06-18 06:07] LABS: CREATININE 0.48 MG/DL (0.40-0.90); TOTAL CARBON DIOXIDE 30.1 MMOL/L (24-32); eCRCL 104 ML/MIN; eGFR > 90 ML/MIN
--- NOTE | 2025-06-18 12:29 | PROGRESS NOTE ---
Daily Progress Note Providers to CC ~ Antibiotic Timeout Antibiotic Ordered?: Yes Subjective No acute events overnight. Patient examined at bedside. No new complaints, not in acute distress. Patient denies chest pain, sob, palpitations, abdominal pain, n/v/d. Vss, labs unremarkable. Pelvic abscess, s/p CT guided deep pelvis abscess aspiration with 2cc of serosanguinous fluid removed on 06/15/25. No drainage tube indicated as size small. Abscess culture pending. Pending rehab, continue PT. 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 Had a EGD and was discovered to have a perforated pyloric channel gastric ulcer and went for a Brett patch repair with Dr. Jacome surgeon on 06/03/2025. A repeat CT scan of the abdomen and pelvis with IV and overnight oral contrast prep was ordered by surgeon on the and it was discovered the patient has a 3.5 x 7.5 cm deep pelvic abscess for which Dr. Jacome recommended transferring the patient for interventional radiology draining the abscess. The patient develop sepsis and was significantly hypotensive on the however has since stabilized in his ready for transfer The patient has been accepted to [facility] anticipate a bed will be available 06/14/[address] Carson and hospitalist Dr. Wheeler have accepted the patient once the patient received a cleared from lice isolation. Assessment & Plan Gastritis/antral ulcer/colitis/Viscus perforation Probable bacterial colitis Fecal impaction Hypothyroidism Depression/bipolar disorder Hyponatermia Sepsis- secondary to pelvic abscess Prerenal CHRISTIAN 2/2 vasomotor nephropathy/sepsis Hypokalemia Acute respiratory failure/ bilateral pleural effusion moderate on the right Acute COPD exacerbation 06/14: pending transfer for IR intervention 06/15: IR available at this facility, s/p CT guided deep pelvis abscess aspiration 06/16: pending rehab, continue PT DVT/VTE Prophylaxis: SCDs Code Status: Full Code Date of Service: Jun 18, 2025 Billing Provider: EDGAR GILL Common Visit Codes: [id number] INP/OBS CARE(MOD) EDGAR GILL Jun 18, 2025 12:29
[2025-06-19] VITALS (10 sets, daily range): BP systolic 108–120; BP diastolic 60–70; PULSE 71–88; RESP 14–18; TEMP 97.2–99; O2SAT 94–100
[2025-06-19] MEDS: fluconazole/NS 400mg/200ml bag 200 ML IV SCH (07:44)
[2025-06-19] MEDS ORDERED: fluconazole-Diflucan 200mg/NS 100 ML IV SCH (08:00)
[2025-06-19 08:16] LABS: MEAN PLATELET VOLUME 6.7 FL (7.4-10.4); RED CELL DISTRIBUTION WIDTH 14.9 % (11.5-14.5)
[2025-06-19 08:54] LABS: CREATININE 0.56 MG/DL (0.40-0.90); TOTAL CARBON DIOXIDE 30.6 MMOL/L (24-32); eCRCL 89 ML/MIN; eGFR > 90 ML/MIN
--- NOTE | 2025-06-19 10:15 | PROGRESS NOTE ---
Daily Progress Note Providers to CC ~ Antibiotic Timeout Antibiotic Ordered?: No Subjective No acute events overnight. Patient examined at bedside. No new complaints, not in acute distress. Patient denies chest pain, sob, palpitations, abdominal pain, n/v/d. Vss, labs unremarkable. Pelvic abscess, s/p CT guided deep pelvis abscess aspiration with 2cc of serosanguinous fluid removed on 06/15/25. No drainage tube indicated as size small. Abscess culture Cher albicans, pt stable started fluconazole. Pending rehab, continue PT. 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 Had a EGD and was discovered to have a perforated pyloric channel gastric ulcer and went for a Brett patch repair with Dr. Jacome surgeon on 06/03/2025. A repeat CT scan of the abdomen and pelvis with IV and overnight oral contrast prep was ordered by surgeon on the and it was discovered the patient has a 3.5 x 7.5 cm deep pelvic abscess for which Dr. Jacome recommended transferring the patient for interventional radiology draining the abscess. The patient develop sepsis and was significantly hypotensive on the however has since stabilized in his ready for transfer The patient has been accepted to [facility] anticipate a bed will be available 06/14/[address] Carson and hospitalist Dr. Wheeler have accepted the patient once the patient received a cleared from lice isolation. Assessment & Plan Gastritis/antral ulcer/colitis/Viscus perforation Probable bacterial colitis Fecal impaction Hypothyroidism Depression/bipolar disorder Hyponatermia Sepsis- secondary to pelvic abscess Prerenal CHRISTIAN 2/2 vasomotor nephropathy/sepsis Hypokalemia Acute respiratory failure/ bilateral pleural effusion moderate on the right Acute COPD exacerbation 06/14: pending transfer for IR intervention 06/15: IR available at this facility, s/p CT guided deep pelvis abscess aspiration 06/16: pending rehab, continue PT 06/19: Abscess culture Cher albicans, pt stable started fluconazole. DVT/VTE Prophylaxis: SCDs Code Status: Full Code Date of Service: Jun 19, 2025 Billing Provider: EDGAR GLIL Common Visit Codes: [id number] INP/OBS CARE(MOD) EDGAR GILL Jun 19, 2025 10:15
[2025-06-20] VITALS (7 sets, daily range): BP systolic 116–124; BP diastolic 65–74; PULSE 80–92; RESP 15–20; TEMP 97.4–98.6; O2SAT 96–99
[2025-06-20 06:27] LABS: MEAN PLATELET VOLUME 6.5 FL (7.4-10.4); RED CELL DISTRIBUTION WIDTH 15.2 % (11.5-14.5)
[2025-06-20 06:41] LABS: CREATININE 0.45 MG/DL (0.40-0.90); TOTAL CARBON DIOXIDE 28.3 MMOL/L (24-32); eCRCL 111 ML/MIN; eGFR > 90 ML/MIN
--- NOTE | 2025-06-20 10:12 | PROGRESS NOTE ---
Daily Progress Note Providers to CC ~ Antibiotic Timeout Antibiotic Ordered?: No Subjective No acute events overnight. Patient examined at bedside. No new complaints, not in acute distress. Patient denies chest pain, sob, palpitations, abdominal pain, n/v/d. Vss, labs unremarkable. Pelvic abscess, s/p CT guided deep pelvis abscess aspiration with 2cc of serosanguinous fluid removed on 06/15/25. No drainage tube indicated as size small. Abscess culture pending. Pending rehab, continue PT. 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 Had a EGD and was discovered to have a perforated pyloric channel gastric ulcer and went for a Brett patch repair with Dr. Jacome surgeon on 06/03/2025. A repeat CT scan of the abdomen and pelvis with IV and overnight oral contrast prep was ordered by surgeon on the and it was discovered the patient has a 3.5 x 7.5 cm deep pelvic abscess for which Dr. Jacome recommended transferring the patient for interventional radiology draining the abscess. The patient develop sepsis and was significantly hypotensive on the however has since stabilized in his ready for transfer The patient has been accepted to [facility] [place] anticipate a bed will be available 06/14/[address] Carson and hospitalist Dr. Wheeler have accepted the patient once the patient received a cleared from lice isolation. Assessment & Plan Gastritis/antral ulcer/colitis/Viscus perforation Probable bacterial colitis Fecal impaction Hypothyroidism Depression/bipolar disorder Hyponatermia Sepsis- secondary to pelvic abscess Prerenal CHRISTIAN 2/2 vasomotor nephropathy/sepsis Hypokalemia Acute respiratory failure/ bilateral pleural effusion moderate on the right Acute COPD exacerbation 06/14: pending transfer for IR intervention 06/15: IR available at this facility, s/p CT guided deep pelvis abscess aspiration 06/16: pending rehab, continue PT 06/19: Abscess culture Cher albicans, pt stable started fluconazole. Pending rehab. DVT/VTE Prophylaxis: SCDs Code Status: Full Code Date of Service: Jun 20, 2025 Billing Provider: EDGAR GILL Common Visit Codes: [id number] INP/OBS CARE(MOD) EDGAR GILL Jun 20, 2025 10:12
[2025-06-21 05:39] LABS: MEAN PLATELET VOLUME 6.8 FL (7.4-10.4); RED CELL DISTRIBUTION WIDTH 14.9 % (11.5-14.5)
[2025-06-21 06:00] VITALS: BP 113/68; PULSE 84; RESP 14; TEMP 97.4; O2SAT 98
[2025-06-21 07:33] VITALS: PULSE 84; RESP 16; O2SAT 97
[2025-06-21 07:40] VITALS: PULSE 81; RESP 16
[2025-06-21 10:00] VITALS: BP 115/71; PULSE 86; RESP 14; TEMP 98; O2SAT 100
[2025-06-21 16:09] VITALS: PULSE 81; RESP 20; O2SAT 98
[2025-06-21 16:17] VITALS: PULSE 79; RESP 20
--- NOTE | 2025-06-21 18:54 | DISCHARGE SUMMARY ---
Discharge Summary Providers to No new complaint today, awaiting to be transferred to rehab facility ~ Discharge Summary Assessment Pelvic abscess Admission Diagnosis: perforated viscus Admission Diagnosis Comment: Pelvic abscess Hospital Course DATE OF ADMISSION: August 30, 2025 DATE OF DISCHARGE: June 21, 2025 Discharge Diagnosis\\Comment: as above Operations\\Procedures: none Consultants: as above Complications: none Condition on DC: Stable Discharge Summary: Date of Admit: 05/31/25 Patient Name: MAYRA NEGRON : 1965 Age: 60 MR #: [id number] Sex: F Report #: [id number] Referring Provider: Primary Care Provider: [facility] Send out: Y Discharge Summary Providers to ~ Discharge Summary Admission Diagnosis: perforated viscus Hospital Course DATE OF ADMISSION: 05/31/25 DATE OF DISCHARGE: 06/21/25 Discharge Diagnosis\\Comment: Gastritis/antral ulcer/colitis/Viscus perforation Probable bacterial colitis Fecal impaction Hypothyroidism Depression/bipolar disorder Hyponatermia Sepsis- secondary to pelvic abscess Prerenal CHRISTIAN 2/2 vasomotor nephropathy/sepsis Hypokalemia Acute respiratory failure/ bilateral pleural effusion moderate on the right Acute COPD exacerbation Operations\\Procedures: EGD Exploratory laparotomy Repair of prepyloric perforated gastric ulcer using Brett patch Thoracentesis Consultants: Surgeon Jarrett [address] Prathibha Complications: None Condition on DC: Stable for transfer Discharge Summary: History of Present Illness From H&P: "60 years old female presented to the ER from the [place] for evaluation of abdominal pain that started this morning. Patient states she had vomited yesterday. Denies having any hematemesis melena or bright red blood per rectum. Denies having any fever. Patient evaluated with a CT scan of the abdomen which showed gastric antrum wall thickening suggestive of gastritis a gastric antral ulceration and wall thickening of the ascending colon with adjacent fat stranding suggestive of colitis. She denies having any chest pain palpitations orthopnea PND or ankle edema. Patient denies having any focal neurological symptoms. Denies having any urinary symptoms as well. Patient has been admitted for further treatment." Hospital Course Diagnostic findings were notable for findings of sepsis and CT revealing findings suggestive of gastritis and gastric antral ulceration, low to moderate volume free fluid in the pelvis, and colitis. EGD with finding was notable for perforated pyloric channel gastric ulcer, LA grade B reflux esophagitis without bleeding and ulcer in the stomach with active bleeding. Patient continued to have emesis hence repeat CT was done which showed development of large volume ascites with pneumoperitoneum, suspected perforated viscus. Case was consulted with surgeon Dr. Jacome and patient underwent exploratory laparotomy with repair of pre-pyloric perforated gastric ulcer using Brett patch. Patient developed pleural effusion and underwent thoracentesis without complication. Patient was treated with empirical antibiotics and PPI. A subsequent CT revealed pelvic abscess measuring 3.5x7.5cm. Patient is to be transferred for IR intervention for abscess drainage as our facility has no IR service available at this time. Lice was treated with permethrin. Patient was seen and examined on the day of discharge. On day of discharge, vss and las unremarkable. All labs, diagnostic workups, discharge plan discussed with patient in details during visit before discharge. All questions and concerns answered to the best of my pr ofessional knowledge. Patient is clinically and hemodynamically stable. Patient is to be transferred to [facility] for IR intervention. 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
== END 2025-06-21 16:31 | DRG 220 ==
LOC: ER 08:49 → ED HOLD 12:34 → SUR 3N 13:40 → CICU 2S 06-02 22:00 → PCU 3S 06-03 20:05 → SUR 3N 06-07 22:10 → PCU 3S 06-08 19:30 → ORTHO 4S 06-14 08:10
PROVIDERS: ADMIT Internal Medicine; ATTEND Internal Medicine
PROC: BW211ZZ Computerized Tomography (CT Scan) of Abdomen and Pelvis using Low Osmolar Contrast (ICD-10-PCS; 2025-05-31)
PROC: 0DB58ZX Excision of Esophagus, Via Natural or Artificial Opening Endoscopic, Diagnostic (ICD-10-PCS; 2025-06-01)
PROC: 0DB68ZX Excision of Stomach, Via Natural or Artificial Opening Endoscopic, Diagnostic (ICD-10-PCS; 2025-06-01)
PROC: BW211ZZ Computerized Tomography (CT Scan) of Abdomen and Pelvis using Low Osmolar Contrast (ICD-10-PCS; 2025-06-02)
PROC: 0DQ60ZZ Repair Stomach, Open Approach (ICD-10-PCS; principal; 2025-06-02 20:46)
PROC: 0W9B3ZZ Drainage of Left Pleural Cavity, Percutaneous Approach (ICD-10-PCS; 2025-06-07)
PROC: 05HB33Z Insertion of Infusion Device into Right Basilic Vein, Percutaneous Approach (ICD-10-PCS; 2025-06-08)
PROC: B54MZZA Ultrasonography of Right Upper Extremity Veins, Guidance (ICD-10-PCS; 2025-06-08)
PROC: BW211ZZ Computerized Tomography (CT Scan) of Abdomen and Pelvis using Low Osmolar Contrast (ICD-10-PCS; 2025-06-08)
DX: K25.6 Chronic or unspecified gastric ulcer with both hemorrhage and perforation (principal); N17.0 Acute kidney failure with tubular necrosis; A41.9 Sepsis, unspecified organism; N73.8 Other specified female pelvic inflammatory diseases; E87.20 Acidosis, unspecified; J90 Pleural effusion, not elsewhere classified; R18.8 Other ascites; E87.1 Hypo-osmolality and hyponatremia; N73.9 Female pelvic inflammatory disease, unspecified; B85.2 Pediculosis, unspecified; F17.210 Nicotine dependence, cigarettes, uncomplicated; E03.9 Hypothyroidism, unspecified; K52.9 Noninfective gastroenteritis and colitis, unspecified; K21.00 Gastro-esophageal reflux disease with esophagitis, without bleeding; G47.00 Insomnia, unspecified; K29.70 Gastritis, unspecified, without bleeding; K56.41 Fecal impaction; E87.6 Hypokalemia; F31.9 Bipolar disorder, unspecified; Z79.899 Other long term (current) drug therapy; Z88.5 Allergy status to narcotic agent; Z88.1 Allergy status to other antibiotic agents; Z90.49 Acquired absence of other specified parts of digestive tract
CPT/HCPCS: 32555; 36410; 36415; 36600; 43239; 49406; 71045; 74018; 74177; 76937; 80048; 80053; 81001; 81025; 82803; 82945; 82948; 83036; 83605; 83615; 83690; 83735; 83986; 84132; 84145; 84157; 84443; 85007; 85018; 85025; 85610; 87070; 87075; 87081; 87102; 89051; 93005; 94002; 94003; 94640; 94760; 96374; 96375; 97110; 97116; 97161; 97530; 99285; A4615; A4618; A4620; A5200; A6209; A6212; A6213; A6250; A6253; A6258; A6260; A6266; A6402; A6449; A6590; A7000; C1729; C1751; C1758; G0378; J0131; J0694; J0696; J1171; J1450; J1885; J2003; J2250; J2270; J2405; J2470; J2543; J2704; J2765; J3010; J3480; J3490; J7030; J7040; J7042; J7070; J7120; P9045; Q9963; Q9967